=== PATIENT | female | born 1950 | race Caucasian/White ===

== ENCOUNTER 2019-12-30 20:33 | Inpatient (IN) ==
--- OUTSIDE RECORDS SUMMARY | 2019-12-30 20:36 | External Medical Summary | Continuity of Care Document ---
:1950 Author Name Shelly Gaines Address Unavailable Unavailable , Care Team Providers Name Role Phone Tony Gaines Unavailable [email or web address] Active medical history not documented Allergies and Adverse Reactions Allergy history not documented Medications Medications not documented Procedures Procedures not documented Immunizations Immunizations not documented Plan of Treatment Planned Observations Planned Goals not documented Results No Known Results Results not documented
[2019-12-30] MEDS ORDERED: HYDROmorphone INJ 1 MG/ML SYRINGE IV PRN (21:14)
[2019-12-30] MEDS ORDERED: ONDANSETRON INJ 2 MG/ML 2 ML VIAL IV STA (21:14)
[2019-12-30] MEDS ORDERED: SODIUM CHLORIDE 0.9% 1000ML 1,000 ML IV ONE (21:15)
[2019-12-30 21:23] LABS: Basophils # (auto) 0.01 K/uL (0-0.2); Basophils % (auto) 0.1 %; Eosinophils # (auto) 0.64 K/uL (0-0.5); Eosinophils % (auto) 4.8 %; Hematocrit (blood only) 42.2 % (37-47); Hemoglobin 14.8 g/dL (12.0-16.0); Immature Granulocytes # (auto) 0.03 K/uL (0.00-0.02); Immature Granulocytes % (auto) 0.2 %; Lymphocytes # (auto) 1.07 K/uL (1.2-3.4); Mean Corpuscular Hemoglobin 30.3 pg (25-34); Mean Corpuscular Hgb Conc 35.1 g/dL (32-36); Mean Corpuscular Volume 86.5 fL (80-100); Mean Platelet Volume 10.8 fL (7.4-10.4); Monocytes # (auto) 1.23 K/uL (0.11-0.59); Monocytes % (auto) 9.2 %; Neutrophils # (auto) 10.34 K/uL (1.4-6.5); Neutrophils % (auto) 77.7 %; Platelet Count 194 K/uL (130-400); RDW Coefficient of Variation 12.7 % (11.5-14.5); RDW Standard Deviation 40.7 fL (36.4-46.3); Red Blood Count 4.88 M/uL (4.2-5.4); White Blood Count 13.32 K/uL (4.8-10.8)
[2019-12-30 21:30] LABS: Albumin Level 3.8 gm/dl (3.4-5.0); BUN Creatinine Ratio 9.1 (10-20); Calcium 9.6 mg/dl (8.5-10.1); Creatinine Clr Calc Pharmacy 24.9 ml/min; Est GFR (African American) 27.5; Est GFR (Non-African American) 23.7; Potassium 4.1 mmol/L (3.5-5.1)
[2019-12-30 21:33] LABS: Albumin Globulin Ratio 1.2 (0.9-2); Bilirubin,Total 1.1 mg/dl (0.2-1); Globulin 3.2 gm/dl (2.5-4.0)
[2019-12-30] MEDS ORDERED: LEVOFLOXACIN/D5W 750 MG/150 ML BAG IV SCH (22:30)
[2019-12-30] MEDS ORDERED: cefTRIAXone SODIUM 2,000 MG/70 ML BAG IV STA (22:30)
[2019-12-30] MEDS ORDERED: PROMETHAZINE HCL 12.5 MG in SODIUM CHLORIDE 0.9% 50 ML IV STA (23:30)
[2019-12-30] MEDS ORDERED: PROMETHAZINE 12.5 MG/50.5 ML NSS IV ONE (23:44)
[2019-12-30] MEDS ORDERED: SODIUM CHLORIDE 0.9% 500 ML IV SCH (23:46)
--- NOTE | 2019-12-31 01:17 | Emergency Department Note ---
History of Present Illness General Chief complaint: Abdominal Pain Stated complaint: abdominal pain Time Seen by Provider: 12/30/19 20:37 Source: patient, RN notes reviewed and old records reviewed Mode of arrival: ambulatory Limitations: no limitations History of Present Illness Provider complaint: Abdominal pain Onset (ago): week(s) 1 Location: abdomen Radiation: back Severity: mild Pain Consistency: + colicky Maximum Pain Intensity: 1 Current Pain Intensity: 1 Quality: + burning Relieved By: + immobilization Exacerbated By: + movement Associated symptoms: + denies other symptoms Treatments prior to arrival: other (cipro and flagyl) This is a 69-year-old female who presents emergency department complaining of abdominal pain. The patient was started on Cipro and Flagyl for presumed diverticulitis by her primary care physician however the patient was vomiting tonight was unable to keep her medicines down. She describes the pain as burning. Home Medications Home Medications Medication Instructions Recorded Confirmed Type alirocumab [Praluent Pen] 0 mg SUBCUT UD 12/30/19 12/30/19 History aspirin [Aspirin Low Dose] 81 mg PO DAILY 12/30/19 12/30/19 History ciprofloxacin HCl 500 mg PO BID 12/30/19 12/30/19 History clonazepam 0.5 mg PO BID 12/30/19 12/30/19 History docusate sodium 100 mg PO DAILY 12/30/19 12/30/19 History ezetimibe 10 mg PO DAILY 12/30/19 12/30/19 History loratadine [Claritin] 10 mg PO DAILY 12/30/19 12/30/19 History metronidazole 500 mg PO TID 12/30/19 12/30/19 History nortriptyline 25 mg PO DAILY 12/30/19 12/30/19 History vortioxetine [Trintellix] 5 mg PO DAILY 12/30/19 12/30/19 History Allergies Allergy/AdvReac Type Severity Reaction Status Date / Time Penicillins Allergy Mild Hives Unverified 12/30/19 20:56 Tetracyclines Allergy Mild Hives Unverified 12/30/19 20:56 Past Med/Surg History Medical History (Updated 12/31/19 @ 01:36 by Joshua Lux MD) Diverticulitis Social History Communication Ability: Effective Beliefs That Will Affect Care: None Current Living Situation: Family Other Information That Helps Us Care for You: No Feels Safe at Home: Yes Safety Concerns: Feels Safe At This Time Smoking Status: Never smoker Hx Alcohol Use: Yes Hx Substance Use: No Review of Systems A total of 10 systems reviewed and were otherwise negative Physical Exam Vital Signs Vital Signs - 24 hr 12/30/19 20:39 12/30/19 21:30 12/30/19 21:41 Temperature 36.6 C Temperature Source Oral Pulse Rate 87 Pulse Rate [Bilateral Apical] 81 Respiratory Rate 20 20 Blood Pressure 138/92 Blood Pressure [Left Arm] 112/59 L Blood Pressure Mean 107 Blood Pressure Mean [Left Arm] 76 Pulse Oximetry 96 96 94 Oxygen Delivery Method Room Air Room Air Room Air Sepsis Recent Fever Within 48 Hours No Sepsis Action Taken by Nursing No Action Required 12/30/19 22:32 12/30/19 23:19 Temperature Temperature Source Pulse Rate Pulse Rate [Bilateral Apical] 84 87 Respiratory Rate 20 20 Blood Pressure Blood Pressure [Left Arm] 117/60 93/71 L Blood Pressure Mean Blood Pressure Mean [Left Arm] 79 78 Pulse Oximetry 95 95 Oxygen Delivery Method Room Air Sepsis Recent Fever Within 48 Hours Sepsis Action Taken by Nursing VITAL SIGNS - Vital signs and nursing notes were reviewed. GENERAL - 69-year-old female appearing stated age who is in no acute distress. Communicates well with provider and answers questions appropriately. SKIN - Without rashes. HEAD - NC/AT. EYES - PERRL with EOMI bilaterally. Sclera anicteric. Palpebral conjunctiva pink and moist with no injection noted. EARS - No deformities of external structures noted on gross examination bilaterally. No pain elicited with palpation of the tragus bilaterally. External auditory canals without discharge or otorrhea. Tympanic membranes pearly rosales without retraction or bulging. No fluid or purulent material visualized behind the TM. Handle of malleus, umbo, cone of light, pars tensa/flaccid all easily visualized. NOSE - Midline and without cyanosis. No epistaxis or purulent drainage noted. Septum midline without deviation or septal hematoma noted. MOUTH/OROPHARYNX - Without perioral cyanosis. Buccal mucosa pink and moist and without leukoplakia. Tongue midline with equal elevation of palate bilaterally. No tonsillar hypertrophy, erythema, or exudates noted. dentition noted. NECK - Neck with FROM. Supple to palpation. lymphadenopathy noted. No nuchal rigidity. LUNGS - Chest wall symmetric without accessory muscle use, intercostals retractions, or central cyanosis. Normal vesicular breath sounds CTA B/L. No wheezes, rales, or rhonchi appreciated. CARDIAC - RRR with S1/S2. No murmur, rubs, or gallops appreciated. ABDOMEN - Abdominal contour without pulsations or visible masses. BS normoactive all four quadrants. No tenderness, palpable masses, hepatosplenomegaly, or ascites noted. EXTREMITIES - No clubbing or peripheral cyanosis. No pretibial edema present. +3/5 radial, posterior tibial, and dorsalis pedis pulses palpated throughout. +5/5 strength noted in UE/LE bilaterally. NEUROLOGIC - Cranial nerves II through XII grossly intact. Sensory intact to light touch throughout. Patellar reflexes +2/4. PSYCH - A&Ox3 and cooperates fully with examiner. Pt is very pleasant and interacts well with examiner. Course Administered Medications Discontinued Medications Hydromorphone HCl (Dilaudid) 1 mg IV Q15M PRN PRN Reason: Pain Stop: 01/13/20 21:13 Last Admin: 12/30/19 21:22 Dose: 1 mg Documented by: [id number] Sodium Chloride (Nss 1000ml) 1,000 mls @ 999 mls/hr IV .Q1H1M ONE Stop: 12/30/19 22:15 Last Infusion: 12/30/19 22:26 Dose: 0 mls/hr Documented by: [id number] Admin: 12/30/19 21:22 Dose: 999 mls/hr Documented by: [id number] Ceftriaxone Sodium (Rocephin) 2,000 mg in 70 mls @ 140 mls/hr IV NOW STA Stop: 12/30/19 22:59 Last Infusion: 12/30/19 23:11 Dose: 0 mls/hr Documented by: [id number] Admin: 12/30/19 22:37 Dose: 140 mls/hr Documented by: [id number] Levofloxacin/Dextrose (Levaquin/D5w) 750 mg in 150 mls @ 100 mls/hr IV Q24H ANTHONY Stop: 01/04/20 22:29 Last Infusion: 12/31/19 00:52 Dose: 0 mls/hr Documented by: [id number] Admin: 12/30/19 23:11 Dose: 100 mls/hr Documented by: [id number] Promethazine HCl 12.5 mg/ (Sodium Chloride) 50.5 mls @ 202 mls/hr IV NOW STA Stop: 12/30/19 23:44 Last Infusion: 12/31/19 00:12 Dose: 0 mls/hr Documented by: [id number] Admin: 12/30/19 23:49 Dose: 202 mls/hr Documented by: [id number] Sodium Chloride (Nss) 500 mls @ 500 mls/hr IV .Q1H ANTHONY Stop: 12/31/19 00:45 Last Admin: 12/31/19 00:16 Dose: 500 mls/hr Documented by: [id number] Ondansetron HCl (Zofran) 4 mg IV NOW STA Stop: 12/30/19 21:15 Last Admin: 12/30/19 21:22 Dose: 4 mg Documented by: [id number] Promethazine HCl (Phenergan) Confirm Administered Dose 12.5 mg IV .STK-MED ONE Stop: 12/30/19 23:45 Last Admin: 12/31/19 00:11 Dose: Not Given Documented by: [id number] Medical Decision Making Differential Diagnosis Appendicitis, ovarian cyst, ovarian torsion, ectopic , TOA, PID, infections, diverticulitis, UTI, obstruction, mesenteric ischemia, aortic pathology, inflammatory bowel disease, renal colic, PUD, pancreatitis, biliary pathology, hernia, volvulus, constipation, as well as other pathologies. Medical Records Attestation: I reviewed the patient's medical records. Home Medications Current Medication List: was personally reviewed by me Laboratory Data Attestation: I reviewed the patient's lab results. Result diagrams: 12/30/19 20:46 12/30/19 20:46 Lab Results 12/30/19 12/30/19 Range/Units 20:46 20:46 WBC 13.32 H (4.8-10.8) K/uL RBC 4.88 (4.2-5.4) M/uL Hgb 14.8 (12.0-16.0) g/dL Hct 42.2 (37-47) % MCV 86.5 (80-100) fL MCH 30.3 (25-34) pg MCHC 35.1 (32-36) g/dL RDW Std Deviation 40.7 (36.4-46.3) fL RDW Coeff of Mike 12.7 (11.5-14.5) % Plt Count 194 (130-400) K/uL MPV 10.8 H (7.4-10.4) fL Immature Gran % (Auto) 0.2 % Neut % (Auto) 77.7 % Lymph % (Auto) 8.0 % Alfalfa % (Auto) 9.2 % Eos % (Auto) 4.8 % Baso % (Auto) 0.1 % Neut # (Auto) 10.34 H (1.4-6.5) K/uL Lymph # (Auto) 1.07 L (1.2-3.4) K/uL Alfalfa # (Auto) 1.23 H (0.11-0.59) K/uL Eos # (Auto) 0.64 H (0-0.5) K/uL Baso # (Auto) 0.01 (0-0.2) K/uL Immature Gran # (Auto) 0.03 H (0.00-0.02) K/uL Sodium 138 (136-145) mmol/L Potassium 4.1 (3.5-5.1) mmol/L Chloride 105 (98-107) mmol/L Carbon Dioxide 22 (21-32) mmol/L Anion Gap 10.0 (3-11) BUN 19 H (7-18) mg/dl Creatinine 2.09 H (0.6-1.2) mg/dl Est Cr Clr Drug Dosing 24.9 ml/min Est GFR ( Amer) 27.5 Est GFR (Non-Af Amer) 23.7 BUN/Creatinine Ratio 9.1 L (10-20) Glucose 124 H (70-99) mg/dl Calcium 9.6 (8.5-10.1) mg/dl Total Bilirubin 1.1 H (0.2-1) mg/dl AST 27 (15-37) U/L ALT 26 (12-78) U/L Alkaline Phosphatase 68 (45-117) U/L Total Protein 7.0 (6.4-8.2) gm/dl Albumin 3.8 (3.4-5.0) gm/dl Globulin 3.2 (2.5-4.0) gm/dl Albumin/Globulin Ratio 1.2 (0.9-2) Lipase 163 (73-393) U/L Imaging Data Radiologist's Impression: CT abd & pelvis: Without contrast: Moderate sized hernia, Distended gallbladder. No wall thickening. No surrounding fluid. No gallstones. Bilateral perinephric standing without hydronephrosis. No obstructive uropathy. Distal colonic diverticulosis. No acute diverticulitis. Right adrenal adenoma. 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 MDM Narrative Patient was seen and evaluated as above in room B7. Review was performed of nursing notes and vital signs. I did review pertinent previous visits and patient history. After obtaining a thorough history and physical examination the above work up was performed. This is a 69-year-old female presents emergency department complaining of abdominal pain as well as vomiting. An IV was established at the patient's creatinine was found to be elevated to 2.0. She was given a normal saline bolus and started on broad-spectrum antibiotics including Rocephin. I did discuss the case with the hospitalist who agreed to admit the patient. An order was placed for continuous cardiac monitoring. The monitor shows a rate of 78 with Normal Sinus rhythm. The patient was evaluated during the global COVID-19 pandemic, and that diagnosis was suspected/considered upon their initial presentation. Their evaluation, treatment and testing was consistent with current guidelines for patients who present with complaints or symptoms that may be related to COVID- 19. Impression & Plan Abdominal pain, Acute kidney failure Discharge Plan Visit Data *Final* Discharge Date/Time: 12/31/19 00:17 Chief Complaint: Abdominal Pain Stated Complaint: abdominal pain ED Provider: Joshua Lux Discharge Problem: Abdominal pain, Acute kidney failure Patient Disposition: Admitted As Inpatient Discharge Instructions Interventions: ED Discharge Assessment Last Done: 12/31/19 00:17 Discharge Problem: Abdominal pain Qualifiers: Abdominal location: unspecified location Qualified Code(s): R10.9 - Unspecified abdominal pain Acute kidney failure Qualifiers: Acute renal failure type: unspecified Qualified Code(s): N17.9 - Acute kidney failure, unspecified
[2019-12-31 01:23] LABS: Appearance Urine Clear (Clear); Bacteria Urine Automated Negative (Negative); Bilirubin Urine Negative (Negative); Blood Urine Negative (Negative); Color Urine Yellow; Epithelial Cell Urine Auto >30 /lpf (0-5); Glucose Urine UA Negative (Negative); Ketones Urine Trace (Negative); Leukocyte Esterase Urine Negative (Negative); Nitrite Urine Negative (Negative); Protein Urine 2+ (Negative); RBC Urine Automated 0-4 /hpf (0-4); Specific Gravity Urine 1.011 (1.000-1.030); Urobilinogen Urine Negative (Negative)
--- NOTE | 2019-12-31 01:32 | History and Physical Report ---
DATE OF ADMISSION: 12/30/2019 CHIEF COMPLAINT: Abdominal pain. HISTORY OF PRESENT ILLNESS: This is a 69-year-old female with past medical history significant for hyperlipidemia, prediabetes, diaphragmatic hernia, diverticulosis of large intestine without hemorrhage, chronic kidney disease stage III, fibromyalgia, history of basal cell cancer, generalized anxiety disorder, major depression who lives at home with her son, presents with ongoing abdominal pain. She is having abdominal pain for last few days. Initially started in the left lower quadrant and groin region, now is mostly in the lower abdomen and also in the back. She had history of diverticulosis so she thought she is having diverticulitis and has tele medicine and was prescribed Cipro and Flagyl which she started taking since Tuesday, but today she could not take the pills because she had several episodes of nausea/ vomiting and she also has episodes of diarrhea, so she came to the ER. In the ER, CT scan was done which is showing bilateral perinephric stranding, but no diverticulitis on the preliminary report. Her white count was 13k. She is afebrile. Her blood pressure is somewhat on the lower side. Otherwise, hemodynamics are stable. Received Rocephin and fluids in the ER, still has some nausea. Denies any headache, no dizziness, no blurred vision, no earache, no runny nose, no sore throat, no cough, no dysphagia, no shortness of breath, no chest pain, no loss of sense of smell or taste. No blood in stools or black stools. Today she has some discomfort while micturating, but in the ER, she was not able to micturate so far. No rash. ALLERGIES: CEPHALEXIN, RASH; CRESTOR, PENICILLINS, HIVES; PRAVASTATIN, SULFA ANTIBIOTICS, TETRACYCLINE. PAST MEDICAL HISTORY: As mentioned above. PAST SURGICAL HISTORY: , bilateral cataract surgery, total hysterectomy, laparoscopy of the abdomen. HOME MEDICATIONS: The patient is on aspirin 81 mg p.o. daily, Cipro 500 mg p.o. b.i.d., metronidazole 500 mg p.o. t.i.d., nortriptyline 25 mg p.o. at bedtime, Zetia 10 mg p.o. daily, Praluent 75 mg injection under skin every 14 days, Trintellix 5 mg p.o. daily, Colace 100 mg p.o. b.i.d., clonazepam 0.5 mg p.o. b.i.d., loratadine 10 mg p.o. daily p.r.n. FAMILY HISTORY: Significant for brother has diabetes, one brother had bypass at age of 45. Brother has thyroid disorder. Sister has thyroid disorder. One sister has CABG at age of 63. Mother has valve repair, diabetes. Father has GA at age of 39. SOCIAL HISTORY: , lives with her son. No smoking, alcohol rarely. No drug use. REVIEW OF SYMPTOMS: As per HPI. Rest of review of symptoms negative. PHYSICAL EXAMINATION: GENERAL: The patient is of moderate build, not in acute distress. VITAL SIGNS: Temperature 36.6, pulse 87, respiratory rate 20, blood pressure 93/71, oxygen 95% on room air. HEENT: No pallor, no icterus. NECK: No JVD, no neck masses, no carotid bruits. CARDIOVASCULAR: S1, S2 heard, regular rate and rhythm. No murmur, no gallop. RESPIRATORY SYSTEM: Normal AP diameter. No accessory muscle use. No wheezing, no crackles. ABDOMEN: Soft, bowel sounds present. Mild abdominal diffuse discomfort. No guarding, no rigidity. No distention. CENTRAL NERVOUS SYSTEM: Cranial nerves II-XII grossly intact. Nonfocal. EXTREMITIES: No edema, no erythema. LABORATORY DATA: WBC 13.3, hemoglobin 14.8, hematocrit 42.2, platelets 194. Sodium 138, potassium 4.1, chloride 105, bicarbonate 22, BUN 19, creatinine 2.09, serum glucose 124, calcium 9.6, total bilirubin 1.1, AST 27, ALT 26, alkaline phosphatase 68, lipase 163. IMAGING: CT of abdomen and pelvis, preliminary report with moderate size hiatal hernia, distended gallbladder, no wall thickening, no surrounding fluid. No gallstones, bilateral perinephric stranding without hydronephrosis. No obstructive uropathy, distal colonic diverticulosis, no acute diverticulitis, right adrenal adenoma, several small saccular aneurysm with peripheral calcifications involving the splenic artery. ASSESSMENT AND PLAN: This is a 69-year-old female who presents with abdominal pain and found to have possible pyelonephritis. 1. Abdominal pain, possible urinary tract infection and possible pyelonephritis. Bilateral perinephric stranding on CT scan. Received Rocephin and Levaquin in Er. We will continue with IV Rocephin. Follow the cultures. IV fluids. Closely monitor in medical floor. She has several episodes of nausea and vomiting today, will keep her npo, IV antiemetics.Distended gall bladder on ct scan. Will get Gall bladder US. 2. Acute kidney injury on chronic kidney disease stage III: Baseline creatinine around 1.1, current creatinine of 2, mostly from the nausea, vomiting and diarrhea, getting fluids. Avoid nephrotoxic agents. We will follow the labs in a.m. Will follow the final report of the CAT scan. 3. Prediabetes, currently n.p.o. We will follow HbA1c levels. 4. Dyslipidemia: On Praluent subcutaneous q. 14 days. 5. Generalized anxiety disorder and depression: On nortriptyline, Klonopin, and on Trintellix. 6. Deep vein thrombosis prophylaxis: Sequential compression devices for now. DISPOSITION: Close monitor in medical floor. Expect to discharge home and follow with family doctor. Level 1 full code. MTDD
[2019-12-31] MEDS: SODIUM CHLORIDE 0.9% 1000ML 1,000 ML IV SCH ×4 (01:40→22:02)
[2019-12-31 01:46] LABS: Renal Epithelial Cells Urine 0-5 /lpf (0-5)
[2019-12-31] MEDS: MoRPHine SULFATE 2 MG/ML CARP IV PRN ×2 (03:27→12:30)
[2019-12-31] MEDS: ACETAMINOPHEN 325 MG TAB PO PRN (05:00)
[2019-12-31 06:24] LABS: Basophils # (auto) 0.01 K/uL (0-0.2); Basophils % (auto) 0.1 %; Eosinophils # (auto) 0.15 K/uL (0-0.5); Eosinophils % (auto) 1.7 %; Immature Granulocytes # (auto) 0.02 K/uL (0.00-0.02); Immature Granulocytes % (auto) 0.2 %; Lymphocytes # (auto) 1.05 K/uL (1.2-3.4); Lymphocytes % (auto) 11.8 %; Mean Corpuscular Hemoglobin 29.9 pg (25-34); Mean Corpuscular Hgb Conc 33.3 g/dL (32-36); Mean Corpuscular Volume 89.7 fL (80-100); Mean Platelet Volume 10.7 fL (7.4-10.4); Monocytes % (auto) 10.1 %; Neutrophils # (auto) 6.78 K/uL (1.4-6.5); Neutrophils % (auto) 76.1 %; Platelet Count 196 K/uL (130-400); RDW Coefficient of Variation 12.8 % (11.5-14.5); RDW Standard Deviation 41.8 fL (36.4-46.3); Red Blood Count 4.35 M/uL (4.2-5.4); White Blood Count 8.91 K/uL (4.8-10.8)
[2019-12-31] MEDS ORDERED: ERTAPENEM CONSULT ACTIVE PRN (06:28)
[2019-12-31 06:47] LABS: BUN Creatinine Ratio 8.4 (10-20); Calcium 8.1 mg/dl (8.5-10.1); Creatinine Clr Calc Pharmacy 19.7 ml/min; Est GFR (African American) 20.7; Est GFR (Non-African American) 17.9; Magnesium 1.9 mg/dl (1.8-2.4); Potassium 4.6 mmol/L (3.5-5.1)
[2019-12-31 07:35] LABS: Estimated Average Glucose 105 mg/dl; Hemoglobin A1C 5.3 % (4.5-5.6)
--- NOTE | 2019-12-31 08:19 | Ultrasound Report ---
ABDOMINAL ULTRASOUND, RIGHT UPPER QUADRANT HISTORY: Left lower quadrant pain. distended galll bladder on ct scan. COMPARISON: Abdomen and pelvis CT 12/22/2019. FINDINGS: Pancreas: The pancreas demonstrates a normal echotexture. Liver: Unremarkable. Gallbladder: Multiple small gallstones. No gallbladder wall thickening. The gallbladder is mildly dis tended. The technologist reported a positive sonographic Forrester sign. CBD: Upper limits of normal measuring 6 mm. Right kidney: No hydronephrosis. Hypoechoic right adrenal gland lesion measuring 2.7 cm. IMPRESSION: 1. Cholelithiasis. No gallbladder wall thickening. However, the gallbladder is distended and the tech nologist reported a positive sonographic Forrester's sign. Therefore, this is concerning for a developin g acute cholecystitis. Clinical correlation and/or HIDA scan recommended for further evaluation. 2. The common bile duct measures 6 mm. 3. A 2.7 cm right adrenal gland lesion. This is better appreciated on yesterday's abdomen and pelvis CT. ACT 112: Negative or not required by law. Electronically signed by: Elliot Dupree M.D. 12/31/2019 8:18 AM
--- NOTE | 2019-12-31 08:25 | CT Scan Report ---
CT OF THE ABDOMEN AND PELVIS WITHOUT CONTRAST CLINICAL HISTORY: Left lower quadrant abdominal pain. COMPARISON STUDY: No previous studies for comparison. TECHNIQUE: Axial images of the abdomen and pelvis were obtained without IV contrast. Images were revi ewed in the axial, sagittal, and coronal planes. Automated exposure control was utilized for the bryn dy. A dose lowering technique was utilized adhering to the principles of ALARA. FINDINGS: No pneumatosis, free air or portal venous gas is present. There is moderate bilateral perin ephric infiltration. There is no hydronephrosis. No renal, ureteral or bladder calculi are present. A 2.6 cm low-attenuation right adrenal nodule favors an adenoma. Unenhanced images of the liver, left adrenal gland, spleen and pancreas are unremarkable. Is no biliary or pancreatic ductal dilatation. G allbladder is mildly distended. There is no adjacent infiltration. There is colonic diverticulosis wi thout evidence for acute diverticulitis. There is no evidence for a bowel obstruction. No suspicious osseous lesions are present. IMPRESSION: 1. Mild gallbladder distention. A right upper quadrant ultrasound is recommended for further evaluati on. 2. Moderate nonspecific bilateral perinephric infiltration. No urinary calculi or hydronephrosis. 3. 2.6 cm right adrenal nodule suggestive of an adenoma. 4. Colonic diverticulosis without evidence for acute diverticulitis. ACT 112: Negative or not required by law. Electronically signed by: Rony Beard M.D. 12/31/2019 8:23 AM
[2019-12-31] MEDS: TRINTELLIX~ORDER AWAITING ACTION SCH ×2 (08:40→16:40)
[2019-12-31] MEDS: ERTAPENEM SODIUM 500 MG in SODIUM CHLORIDE 0.9% 50 ML IV SCH (08:40)
[2019-12-31] MEDS: ONDANSETRON INJ 2 MG/ML 2 ML VIAL IV PRN ×2 (09:57→17:51)
--- NOTE | 2019-12-31 10:24 | Hospitalist Progress Note ---
Date of Service December 31, 2019 Assessment & Plan (1) Abdominal pain: Cholelithiasis, with possible acute cholecystitis - as per admission H and P "This is a 69-year-old female with past medical history significant for hyperlipidemia, prediabetes, diaphragmatic hernia, diverticulosis of large intestine without hemorrhage, chronic kidney disease stage III, fibromyalgia, history of basal cell cancer, generalized anxiety disorder, major depression who lives at home with her son, presents with ongoing abdominal pain. She is having abdominal pain for last few days. Initially started in the left lower quadrant and groin region, now is mostly in the lower abdomen and also in the back. She had history of diverticulosis so she thought she is having diverticulitis and has tele medicine and was prescribed Cipro and Flagyl which she started taking since Tuesday, but today she could not take the pills because she had several episodes of nausea/ vomiting and she also has episodes of diarrhea, so she came to the ER. In the ER, CT scan was done which is showing bilateral perinephric strand ing, but no diverticulitis on the preliminary report. Her white count was 13k. She is afebrile." -patient was given ceftriaxone and Levaquin in the ED and then admitting physician transitioned antibiotics to Ertapenem instead for now for possible underlying infection of unclear etiology -ultrasound shows "Cholelithiasis. No gallbladder wall thickening. However, the gallbladder is distended and the technologist reported a positive sonographic Forrester's sign. Therefore, this is concerning for a developing acute cholecystitis." -discussed with gastroenterology team, and they recommended MRCP instead of HIDA scan for now -patient to be NPO and await general surgery consult (2) Lesion of adrenal gland: A 2.7 cm right adrenal gland lesion on ultrasound which may be incidental finding (3) Acute kidney failure: Acute kidney injury on chronic kidney disease stage III: -Baseline creatinine around 1.1, current creatinine of 2.64 -most likely not in acute renal failure unless labs do not improve with IV fluids -mostly likely acute kidney injury is pre-renal from dehydration -follow creatinine with the IV fluids Prediabetes by history -HbA1c levels is 5.3 Dyslipidemia -On Praluent subcutaneous q. 14 days. Generalized anxiety disorder and depression -On nortriptyline, Klonopin, and on Trintellix Deep vein thrombosis prophylaxis: Sequential compression devices for now Admission and Anticipated Discharge Date Admission Date: December 30, 2019 Subjective patient reports her pain has been mostly left sided of abdomen but that on palpation by hospitalist and GI physician printer assistant that there is more tenderness when palpating right side of abdomen no vomiting today. denies pacemaker or metal parts in the body. no chest pain. breathing on room air. no shortness of breath. no dizziness. no lightheadedness. Review of Systems Review of Systems: All systems reviewed & are unremarkable except as noted in Subjective Physical Exam Constitutional: WD/WN, vitals as above Eyes: PERRL, conjunctivae normal, anicteric sclerae EOM intact bilaterally ENMT: external ear and nose normal, oropharynx normal Neck: trachea midline, no thyromegaly normal visual inspection Respiratory: normal respiratory effort, lungs clear to auscultation Cardiovascular: Rate/Rhythm: regular rate Gastrointestinal (Abdomen): Percussion/Palpation: abdomen soft patient reports her pain has been mostly left sided of abdomen but that on palpation by hospitalist and GI physician printer assistant that there is more tenderness when palpating right side of abdomen Musculoskeletal: Head/Neck/Chest: normocephalic and head atraumatic Neurologic: PERRL, EOMI, accommodation nl, no face palsy, no dysarthria CN's II-XI intact bilaterally Psychiatric: A+Ox3, euthymic affect Results & Data Results & Data ([facility]) Vital Signs (Past 12 Hours) Vital Signs Temp Pulse Pulse Resp BP Pulse Ox 12/31/19 07:12 36.9 C 69 18 108/71 97 12/31/19 00:57 35.6 C L 78 18 129/84 94 12/31/19 00:12 86 20 131/86 94 12/30/19 23:19 87 20 93/71 L 95 12/30/19 22:32 84 20 117/60 95 (1) Acute kidney failure Acute renal failure type: unspecified Qualified Code(s): N17.9 - Acute kidney failure, unspecified (2) Abdominal pain Abdominal location: unspecified location Qualified Code(s): R10.9 - Unspecified abdominal pain
--- NOTE | 2019-12-31 10:25 | Gastrointestinal Consultation ---
Date of Consultation December 31, 2019 Supervising Physician Co-Signing Physician Notes I have personally seen and examined the patient with GARLAND Reyez. Her note reflects my exam and findings. I agree with her impression and plans. MRCP today looking for biliary source. Qasim Alves M.D. History of Present Illness Reason for Consultation: Distended Gallbladder Requesting Physician: Dr. Sergio Hicks Attending Physician: Dr. Qasim Alves History of Present Illness Pt is a 69 y/o female who presented yesterday w c/o increasing abd pain symptoms. Initially LLQ abd pain a few days ago, suspected to have diverticulitis, and given a course of Cipro/Flagyl by PCP. She however noted abd pain started to radiate to R side of abd. Denies associated fever, chills, CP, SOB. Does have n/v, and reports having hard time initiating urine stream though denies hematuria or dysuria. Admission CT abd/pelvis w/o contrast was suspicious for pyelonephritis. There was also mildly distended gallbladder. Gallbladder u/s obtained showed gallstones, CBD 6mm , and there was positive Forrester's sign. Labs notable for increased WBC, LFTs w mild Tbili elevation of 1.1, Cr up from baseline of 1 to 2.2. Lipase normal. UA positive for protein, ketones. ASSESSMENT & PLANS: Pt is a 69 y/o female w L -> R sided abd pain. Initially received outpt Cipro/Flagyl for suspected diverticulitis however pain worsen. Admission CT suspicious for pyelonephritis and gallbladder noted to be mildly distended w stones and she does have positive Forrester's sign. CBD 6mm. LFTs w only mild T bili elevation, lipase normal. - NPO for now - JANET managment per primary team - Continue IV antibx - Obtain MRCP to r/o biliary stone though seems less likely - Surgery consulted already Allergies Allergy/AdvReac Type Severity Reaction Status Date / Time Penicillins Allergy Mild Hives Unverified 12/30/19 20:56 Tetracyclines Allergy Mild Hives Unverified 12/30/19 20:56 Home Medications Home Medications Medication Instructions Recorded Confirmed Type alirocumab [Praluent Pen] 0 mg SUBCUT UD 12/30/19 12/30/19 History aspirin [Aspirin Low Dose] 81 mg PO DAILY 12/30/19 12/30/19 History ciprofloxacin HCl 500 mg PO BID 12/30/19 12/30/19 History clonazepam 0.5 mg PO BID 12/30/19 12/30/19 History docusate sodium 100 mg PO DAILY 12/30/19 12/30/19 History ezetimibe 10 mg PO DAILY 12/30/19 12/30/19 History loratadine [Claritin] 10 mg PO DAILY 12/30/19 12/30/19 History metronidazole 500 mg PO TID 12/30/19 12/30/19 History nortriptyline 25 mg PO DAILY 12/30/19 12/30/19 History vortioxetine [Trintellix] 5 mg PO DAILY 12/30/19 12/30/19 History Patient History Medical History Diverticulitis Social History Communication Ability: Effective Beliefs That Will Affect Care: None Current Living Situation: Family Other Information That Helps Us Care for You: No Feels Safe at Home: Yes Safety Concerns: Feels Safe At This Time Smoking Status: Never smoker Hx Alcohol Use: Yes Hx Substance Use: No Review of Systems Review of Systems: All systems reviewed & are unremarkable except as noted in HPI & below Physical Exam Constitutional: WD/WN, vitals as above well groomed and cooperative; + uncomfortable Eyes: PERRL, conjunctivae normal, anicteric sclerae ENMT: external ear and nose normal, oropharynx normal Respiratory: normal respiratory effort, lungs clear to auscultation Cardiovascular: RRR, no murmur, no edema Gastrointestinal (Abdomen): Inspection/Auscultation: + hypoactive bowel sounds Percussion/Palpation: + abdomen tender (RUQ, epigastric ) and abdomen soft Skin: no rashes, warm and dry no jaundice Psychiatric: A+Ox3, euthymic affect Lymphatic: no lymphedema Results & Data ([facility]) Vital Signs (Past 12 Hours) Vital Signs Temp Pulse Pulse Resp BP Pulse Ox 12/31/19 07:12 36.9 C 69 18 108/71 97 12/31/19 00:57 35.6 C L 78 18 129/84 94 12/31/19 00:12 86 20 131/86 94 12/30/19 23:19 87 20 93/71 L 95 12/30/19 22:32 84 20 117/60 95
[2019-12-31] MEDS ORDERED: MAGNESIUM SULFATE / D5W 1 GM/100 ML BAG IV ONE (10:45)
[2019-12-31] MEDS: LORATADINE 10 MG TAB PO SCH (11:25)
[2019-12-31] MEDS: ASPIRIN 81 MG ECTAB PO SCH (11:25)
[2019-12-31] MEDS: clonazePAM 0.5 MG TAB PO SCH ×2 (11:26→20:25)
[2019-12-31] MEDS: EZETIMIBE 10 MG TABLET PO SCH (11:26)
--- NOTE | 2019-12-31 14:23 | Magnetic Resonance Report ---
MRCP CLINICAL HISTORY: Generalized abdominal pain. Vomiting. COMPARISON STUDY: Abdominal CT dated 12/30/2019. Abdominal ultrasound dated 12/31/2019. TECHNIQUE: Abdominal MRCP is performed utilizing various T2-weighted sequences in the axial and coron al planes. IV contrast was not administered for this examination. 3-D reformats are created and asses sed. FINDINGS: The gallbladder is mildly distended and there are large intraluminal gallstones. There is no gallblad mehrdad wall thickening or surrounding inflammation. Trace nonspecific pericholecystic and perihepatic fl uid is noted. There is no intra or extrahepatic biliary duct dilatation. The common bile duct measure s up to 7 mm. No intraluminal filling defects are identified to suggest choledocholithiasis. The panc reatic duct is normal in caliber. The liver is enlarged, and hepatic steatosis was shown by both CT and ultrasound. The spleen is blaze l in size. A 10 mm T2 hyperintense lesion in the inferior spleen is statistically of doubtful signifi cance. A 2.7 cm right adrenal nodule was shown to represent a fat-containing adenoma by CT. There is nonspecific bilateral perinephric infiltration, as well as fluid within the paracolic gutters bilater ally, left greater than right. The abdominal aorta is normal in caliber. The pancreatic parenchyma is normal as imaged. There is no bowel obstruction. Diverticulosis is noted in the imaged colon. No upp er abdominal lymphadenopathy is identified. There is a large hiatal hernia. Trace pleural effusions are noted. No destructive bony lesion is sugg ested. IMPRESSION: 1. Cholelithiasis within a mildly distended gallbladder. There is no clear MRI evidence of acute chol ecystitis. If there is clinical concern for acute cholecystitis a nuclear hepatobiliary scan should b e considered. 2. There is no intra or extrahepatic biliary ductal dilatation. No choledocholithiasis is seen. 3. There is nonspecific perinephric infiltration and fluid within the paracolic gutters, left greater than right. Correlate clinically and urinalysis for evidence of ascending urinary tract infection/py elonephritis. 4. The liver is enlarged and steatotic. 5. Large hiatal hernia. 6. Trace pleural effusions and upper abdominal ascites. Dictated: 12/31/2019 1:44 PM Transcribed: 12/31/2019 2:01 PM Rosalinda [id number] [id number] Electronically signed by: Carlos Kessler M.D. 12/31/2019 2:22 PM
--- NOTE | 2019-12-31 14:58 | Surgery Consultation ---
Date of Consultation December 31, 2019 Assessment & Plan (1) Abdominal pain: 69-year-old female with bilateral flank pain and perinephric stranding as well as cholelithiasis with no obvious evidence for cholecystitis. Renal function was worsening this morning. MRCP shows no bile duct obstruction, some gallstones but no cholecystitis. At this time, it appears that her symptoms are more renal in origin than from her gallbladder. We will order a HIDA scan to further assess. No surgical intervention at this time HIDA scan If HIDA scan will not be performed until tomorrow, then she can have clear liquids, n.p.o. after midnight. Otherwise keep n.p.o. (2) Cholelithiasis: (3) Acute kidney failure: History of Present Illness Reason for Consultation: Cholelithiasis Attending Physician: Sergio Hicks MD History of Present Illness 69-year-old female admitted overnight with bilateral flank pain. She has a history of diverticulitis in the past, and a few days ago she started complaining of left lower quadrant and left flank pain that felt similar to her diverticulitis. She had a telehealth visit with her primary care provider and they prescribed antibiotics. The symptoms worsen. She also noted that her pain migrated to be bilateral flank pain down into her groins. This felt similar to prior kidney infections in the past. She did have some nausea with food. She denies any history of postprandial abdominal pain or intolerance of fatty meals. In the emergency department she had a CT scan performed which showed a distended gallbladder with gallstones but no evidence of cholecystitis. She also had some bilateral perinephric stranding concerning for pyelonephritis. She had an ultrasound performed which showed gallstones with gallbladder distention, but no gallbladder wall thickening or pericholecystic fluid. She did have a reported positive Forrester sign at the time. She was admitted overnight and GI was consulted in the morning. GI ordered an MRCP and surgery was consulted. She had a total bilirubin of 1.1 but the rest of her LFTs were normal. Her white blood cell count was elevated yesterday but is normal today. Prior hysterectomy and , no other abdominal surgeries. Her main complaint is flank pain radiating into her groins. Allergies Allergy/AdvReac Type Severity Reaction Status Date / Time Penicillins Allergy Mild Hives Unverified 12/30/19 20:56 Tetracyclines Allergy Mild Hives Unverified 12/30/19 20:56 Home Medications Home Medications Medication Instructions Recorded Confirmed Type alirocumab [Praluent Pen] 0 mg SUBCUT UD 12/30/19 12/30/19 History aspirin [Aspirin Low Dose] 81 mg PO DAILY 12/30/19 12/30/19 History ciprofloxacin HCl 500 mg PO BID 12/30/19 12/30/19 History clonazepam 0.5 mg PO BID 12/30/19 12/30/19 History docusate sodium 100 mg PO DAILY 12/30/19 12/30/19 History ezetimibe 10 mg PO DAILY 12/30/19 12/30/19 History loratadine [Claritin] 10 mg PO DAILY 12/30/19 12/30/19 History metronidazole 500 mg PO TID 12/30/19 12/30/19 History nortriptyline 25 mg PO DAILY 12/30/19 12/30/19 History vortioxetine [Trintellix] 5 mg PO DAILY 12/30/19 12/30/19 History Patient History Medical History Diverticulitis Social History Communication Ability: Effective Beliefs That Will Affect Care: None Current Living Situation: Family Other Information That Helps Us Care for You: No Feels Safe at Home: Yes Safety Concerns: Feels Safe At This Time Smoking Status: Never smoker Hx Alcohol Use: Yes Hx Substance Use: No Review of Systems Review of Systems: All systems reviewed & are unremarkable except as noted in HPI & below Physical Exam Constitutional: WD/WN, vitals as above Eyes: PERRL, conjunctivae normal, anicteric sclerae ENMT: external ear and nose normal, oropharynx normal Neck: trachea midline, no thyromegaly Respiratory: normal respiratory effort, lungs clear to auscultation Cardiovascular: RRR, no murmur, no edema Gastrointestinal (Abdomen): Percussion/Palpation: + abdomen tender (Bilateral flank tenderness, and diffuse abdominal tenderness to light palpation. No guarding or rebound. Negative Forrester sign) and abdomen soft; no guarding and abdomen not rigid Musculoskeletal: no cyanosis or clubbing, extremities motor strength 5/5 Skin: no rashes, warm and dry Neurologic: PERRL, EOMI, accommodation nl, no face palsy, no dysarthria Psychiatric: A+Ox3, euthymic affect Lymphatic: no cervical or axillary lymphadenopathy Results & Data Vital Signs (Past 12 Hours) Vital Signs Temp Pulse Resp BP Pulse Ox 12/31/19 07:12 36.9 C 69 18 108/71 97 Laboratory Results Laboratory Results - last 24 hr 12/30/19 12/30/19 12/31/19 20:46 20:46 01:10 WBC 13.32 H RBC 4.88 Hgb 14.8 Hct 42.2 MCV 86.5 MCH 30.3 MCHC 35.1 RDW Std Deviation 40.7 RDW Coeff of Mike 12.7 Plt Count 194 MPV 10.8 H Immature Gran % (Auto) 0.2 Neut % (Auto) 77.7 Lymph % (Auto) 8.0 Mcn[place] % (Auto) 9.2 Eos % (Auto) 4.8 Baso % (Auto) 0.1 Neut # (Auto) 10.34 H Lymph # (Auto) 1.07 L [place] # (Auto) 1.23 H Eos # (Auto) 0.64 H Baso # (Auto) 0.01 Immature Gran # (Auto) 0.03 H Sodium 138 Potassium 4.1 Chloride 105 Carbon Dioxide 22 Anion Gap 10.0 BUN 19 H Creatinine 2.09 H Est Cr Clr Drug Dosing 24.9 Est GFR ( Amer) 27.5 Est GFR (Non-Af Amer) 23.7 BUN/Creatinine Ratio 9.1 L Glucose 124 H Estimat Average Glucose Hemoglobin A1c Calcium 9.6 Magnesium Total Bilirubin 1.1 H AST 27 ALT 26 Alkaline Phosphatase 68 Total Protein 7.0 Albumin 3.8 Globulin 3.2 Albumin/Globulin Ratio 1.2 Lipase 163 Urine Color Yellow Urine Appearance Clear Urine pH 6.0 Ur Specific [place] 1.011 Urine Protein 2+ H Urine Glucose (UA) Negative Urine Ketones Trace H Urine Blood Negative Urine Nitrite Negative Urine Bilirubin Negative Urine Urobilinogen Negative Ur Leukocyte Esterase Negative Urine WBC (Auto) 1-5 Urine RBC (Auto) 0-4 U Hyaline Cast (Auto) 5-10 H U Epithel Cells (Auto) >30 H Urine Bacteria (Auto) Negative Ur Renal Epithelial Cell 0-5 12/31/19 12/31/19 12/31/19 05:31 05:31 05:31 WBC 8.91 RBC 4.35 Hgb 13.0 Hct 39.0 MCV 89.7 MCH 29.9 MCHC 33.3 RDW Std Deviation 41.8 RDW Coeff of Mike 12.8 Plt Count 196 MPV 10.7 H Immature Gran % (Auto) 0.2 Neut % (Auto) 76.1 Lymph % (Auto) 11.8 [place] % (Auto) 10.1 Eos % (Auto) 1.7 Baso % (Auto) 0.1 Neut # (Auto) 6.78 H Lymph # (Auto) 1.05 L [place] # (Auto) 0.90 H Eos # (Auto) 0.15 Baso # (Auto) 0.01 Immature Gran # (Auto) 0.02 Sodium 140 Potassium 4.6 Chloride 110 H Carbon Dioxide 26 Anion Gap 4.0 BUN 22 H Creatinine 2.64 H D Est Cr Clr Drug Dosing 19.7 Est GFR ( Amer) 20.7 Est GFR (Non-Af Amer) 17.9 BUN/Creatinine Ratio 8.4 L Glucose 91 Estimat Average Glucose 105 Hemoglobin A1c 5.3 Calcium 8.1 L D Magnesium 1.9 Total Bilirubin AST ALT Alkaline Phosphatase Total Protein Albumin Globulin Albumin/Globulin Ratio Lipase Urine Color Urine Appearance Urine pH Ur Specific [place] Urine Protein Urine Glucose (UA) Urine Ketones Urine Blood Urine Nitrite Urine Bilirubin Urine Urobilinogen Ur Leukocyte Esterase Urine WBC (Auto) Urine RBC (Auto) U Hyaline Cast (Auto) U Epithel Cells (Auto) Urine Bacteria (Auto) Ur Renal Epithelial Cell 12/31/19 14:37 WBC RBC Hgb Hct MCV MCH MCHC RDW Std Deviation RDW Coeff of Mike Plt Count MPV Immature Gran % (Auto) Neut % (Auto) Lymph % (Auto) [place] % (Auto) Eos % (Auto) Baso % (Auto) Neut # (Auto) Lymph # (Auto) [place] # (Auto) Eos # (Auto) Baso # (Auto) Immature Gran # (Auto) Sodium Pending Potassium Pending Chloride Pending Carbon Dioxide Pending Anion Gap Pending BUN Pending Creatinine Pending Est Cr Clr Drug Dosing Pending Est GFR ( Amer) Pending Est GFR (Non-Af Amer) Pending BUN/Creatinine Ratio Pending Glucose Pending Estimat Average Glucose Hemoglobin A1c Calcium Pending Magnesium Pending Total Bilirubin Pending AST Pending ALT Pending Alkaline Phosphatase Pending Total Protein Pending Albumin Pending Globulin Pending Albumin/Globulin Ratio Pending Lipase Urine Color Urine Appearance Urine pH Ur Specific [place] Urine Protein Urine Glucose (UA) Urine Ketones Urine Blood Urine Nitrite Urine Bilirubin Urine Urobilinogen Ur Leukocyte Esterase Urine WBC (Auto) Urine RBC (Auto) U Hyaline Cast (Auto) U Epithel Cells (Auto) Urine Bacteria (Auto) Ur Renal Epithelial Cell Diagnostic Findings MRCP CLINICAL HISTORY: Generalized abdominal pain. Vomiting. COMPARISON STUDY: Abdominal CT dated 12/30/2019. Abdominal ultrasound dated 12/31/2019. TECHNIQUE: Abdominal MRCP is performed utilizing various T2-weighted sequences in the axial and coronal planes. IV contrast was not administered for this exa mination. 3-D reformats are created and assessed. FINDINGS: The gallbladder is mildly distended and there are large intraluminal gallstones. There is no gallbladder wall thickening or surrounding inflammation. Trace nonspecific pericholecystic and perihepatic fluid is noted. There is no intra or extrahepatic biliary duct dilatation. The common bile duct measures up to 7 mm. No intraluminal filling defects are identified to suggest choledocholithiasis. The pancreatic duct is normal in caliber. The liver is enlarged, and hepatic steatosis was shown by both CT and ultrasound. The spleen is normal in size. A 10 mm T2 hyperintense lesion in the inferior spleen is statistically of doubtful significance. A 2.7 cm right adrenal nodule was shown to represent a fat-containing adenoma by CT. There is nonspecific bilateral perinephric infiltration, as well as fluid within the paracolic gutters bilaterally, left greater than right. The abdominal aorta is normal in caliber. The pancreatic parenchyma is normal as imaged. There is no bowel obstruction. Diverticulosis is noted in the imaged colon. No upper abdominal lymphadenopathy is identified. There is a large hiatal hernia. Trace pleural effusions are noted. No destructive bony lesion is suggested. IMPRESSION: 1. Cholelithiasis within a mildly distended gallbladder. There is no clear MRI evidence of acute cholecystitis. If there is clinical concern for acute cholecystitis a nuclear hepatobiliary scan should be considered. 2. There is no intra or extrahepatic biliary ductal dilatation. No choledocholithiasis is seen. 3. There is nonspecific perinephric infiltration and fluid within the paracolic gutters, left greater than right. Correlate clinically and urinalysis for evidence of ascending urinary tract infection/pyelonephritis. 4. The liver is enlarged and steatotic. 5. Large hiatal hernia. 6. Trace pleural effusions and upper abdominal ascites. PG Care Time/CCT Total # of Minutes Spent Total Time Spent with Patient: Total time spent is greater than 50% in coordination of care (as documented) at patient's floor/unit and/or counseling patient: Coding Level of Care Code 42172 Inpt Consult Level 3 Diagnoses Abdominal pain R10.9 Abdominal location: unspecified location Cholelithiasis K80.20 Acute kidney failure N17.9 Acute renal failure type: unspecified (1) Abdominal pain Abdominal location: unspecified location Qualified Code(s): R10.9 - Unspecified abdominal pain (2) Acute kidney failure Acute renal failure type: unspecified Qualified Code(s): N17.9 - Acute kidney failure, unspecified
[2019-12-31 15:14] LABS: Albumin Level 2.9 gm/dl (3.4-5.0); Calcium 8.6 mg/dl (8.5-10.1); Creatinine Clr Calc Pharmacy 17.7 ml/min; Est GFR (African American) 18.2; Est GFR (Non-African American) 15.7; Magnesium 2.5 mg/dl (1.8-2.4); Potassium 4.1 mmol/L (3.5-5.1)
[2019-12-31 15:27] LABS: Bilirubin,Total 0.5 mg/dl (0.2-1); Total Protein 5.9 gm/dl (6.4-8.2)
[2019-12-31] MEDS ORDERED: D5W AND 1/2NSS 1,000 ML IV SCH (15:45)
[2019-12-31] MEDS: NORTRIPTYLINE HCL 25 MG CAP PO SCH (20:25)
[2019-12-31] MEDS ORDERED: cefTRIAXone SODIUM 1,000 MG in DEXTROSE 5% 50 ML IV SCH (21:00)
[2020-01-01] MEDS: ERTAPENEM SODIUM 500 MG in SODIUM CHLORIDE 0.9% 50 ML IV SCH (05:56)
[2020-01-01] MEDS: SODIUM CHLORIDE 0.9% 1000ML 1,000 ML IV SCH ×3 (05:56→20:34)
[2020-01-01 07:40] LABS: Basophils # (auto) 0.01 K/uL (0-0.2); Basophils % (auto) 0.1 %; Eosinophils # (auto) 0.56 K/uL (0-0.5); Eosinophils % (auto) 6.8 %; Hematocrit (blood only) 37.5 % (37-47); Hemoglobin 12.1 g/dL (12.0-16.0); Immature Granulocytes # (auto) 0.01 K/uL (0.00-0.02); Immature Granulocytes % (auto) 0.1 %; Lymphocytes # (auto) 1.48 K/uL (1.2-3.4); Lymphocytes % (auto) 17.9 %; Mean Corpuscular Hemoglobin 29.2 pg (25-34); Mean Corpuscular Hgb Conc 32.3 g/dL (32-36); Mean Corpuscular Volume 90.4 fL (80-100); Mean Platelet Volume 10.2 fL (7.4-10.4); Monocytes # (auto) 0.86 K/uL (0.11-0.59); Monocytes % (auto) 10.4 %; Neutrophils # (auto) 5.36 K/uL (1.4-6.5); Neutrophils % (auto) 64.7 %; Platelet Count 196 K/uL (130-400); RDW Coefficient of Variation 13.2 % (11.5-14.5); RDW Standard Deviation 43.5 fL (36.4-46.3); Red Blood Count 4.15 M/uL (4.2-5.4); White Blood Count 8.28 K/uL (4.8-10.8)
[2020-01-01 08:07] LABS: Albumin Level 2.7 gm/dl (3.4-5.0); BUN Creatinine Ratio 8.2 (10-20); Calcium 8.2 mg/dl (8.5-10.1); Creatinine Clr Calc Pharmacy 20.1 ml/min; Est GFR (African American) 21.3; Est GFR (Non-African American) 18.4; Potassium 4.1 mmol/L (3.5-5.1)
[2020-01-01 08:09] LABS: Bilirubin,Total 0.4 mg/dl (0.2-1); Globulin 2.8 gm/dl (2.5-4.0); Total Protein 5.5 gm/dl (6.4-8.2)
--- NOTE | 2020-01-01 08:39 | Surgery Progress Note ---
Date of Service January 01, 2020 Assessment & Plan (1) Abdominal pain: Patient here with abdominal pain, MRCP and RUQ US showing stones, but no evidence of acute cholecystitis Patient reports her abdominal pain is about the same LFT's today within normal limits and WBC 8.6 Will obtain HIDA scan today for further evaluation, will follow up on results Supervising Physician Co-Signing Physician Notes Patient seen and examined, labs and imaging reviewed, agree with above. MRCP yesterday was negative for choledocholithiasis or cholecystitis. HIDA scan performed today showed no cholecystitis. She is still having some abdominal discomfort and nausea. Would recommend that she trial a regular diet. If her symptoms persist, then we will discuss possible cholecystectomy. She knows that this may not relieve all of her symptoms. She will be n.p.o. after midnight in anticipation of possible surgery. NUCLEAR HEPATOBILIARY SCAN CLINICAL HISTORY: Right upper quadrant abdominal pain. COMPARISON STUDY: MRCP and abdominal ultrasound dated 12/31/2019. TECHNIQUE: Dynamic images of the liver and anterior abdomen were obtained every 5 minutes for a total of 60 minutes following the IV administration of 5.5mCi of technetium 99m Choletec. FINDINGS: The hepatobiliary scan shows prompt and homogeneous hepatic uptake. There is visualized activity within the intra and extrahepatic biliary tree at 10 minutes, and within the gallbladder at 40 minutes. There is normal biliary to bowel transit, with small bowel visualized by 15 minutes. IMPRESSION: Normal nuclear hepatobiliary scan. There is no scintigraphic ev idence of cholecystitis. Subjective Patient said she had a good night of sleep. Starting to pass some gas. Has mild nausea. Reports her abdominal pain is about the same. Physical Exam Physical Exam: awake/alert Gastrointestinal (Abdomen): Percussion/Palpation: + abdomen tender (mild ttp along right sided abdomen) and abdomen soft Results & Data Vital Signs (Past 12 Hours) Vital Signs Temp Pulse Resp BP BP Pulse Ox 01/01/20 06:52 37.2 C 90 16 124/77 93 12/31/19 23:30 37.1 C 93 H 16 124/70 96 PG Care Time/CCT Total # of Minutes Spent Total Time Spent with Patient: Total time spent is greater than 50% in coordination of care (as documented) at patient's floor/unit and/or counseling patient: Coding Level of Care Code 64745 Subseq Hosp Care Lvl 1 Diagnoses Abdominal pain R10.9 Abdominal location: unspecified location (1) Abdominal pain Abdominal location: unspecified location Qualified Code(s): R10.9 - Unspecified abdominal pain
[2020-01-01] MEDS ORDERED: SINCALIDE 1.6 MCG in 0.9 % SODIUM CHLORIDE 100 ML IV SCH (08:45)
--- NOTE | 2020-01-01 09:30 | Nuclear Medicine Report ---
NUCLEAR HEPATOBILIARY SCAN CLINICAL HISTORY: Right upper quadrant abdominal pain. COMPARISON STUDY: MRCP and abdominal ultrasound dated 12/31/2019. TECHNIQUE: Dynamic images of the liver and anterior abdomen were obtained every 5 minutes for a total of 60 minutes following the IV administration of 5.5mCi of technetium 99m Choletec. FINDINGS: The hepatobiliary scan shows prompt and homogeneous hepatic uptake. There is visualized act ivity within the intra and extrahepatic biliary tree at 10 minutes, and within the gallbladder at 40 minutes. There is normal biliary to bowel transit, with small bowel visualized by 15 minutes. IMPRESSION: Normal nuclear hepatobiliary scan. There is no scintigraphic evidence of cholecystitis. ACT 112: Negative or not required by law. Electronically signed by: Carlos Kessler M.D. 01/01/2020 9:29 AM
[2020-01-01] MEDS: LORATADINE 10 MG TAB PO SCH (10:42)
[2020-01-01] MEDS: VORTIOXETINE HYDROBROMIDE PO SCH (10:42)
[2020-01-01] MEDS: clonazePAM 0.5 MG TAB PO SCH ×2 (10:42→21:09)
[2020-01-01] MEDS: ASPIRIN 81 MG ECTAB PO SCH (10:42)
--- NOTE | 2020-01-01 10:57 | Nephrology Consultation ---
Date of Consultation January 01, 2020 Assessment & Plan (1) Acute kidney failure: Patient with acute kidney injury likely due to ischemic ATN in setting of NSAID use and intravascular volume depletion from vomiting and diarrhea. Baseline creatinine of 1.1. Patient admitted with a creatinine of 2 which peaked to 2.9 but improving today to 2.5. -Continue IV fluids at the current rate. -Monitor input output. -Avoid contrast. I explained to patient adverse effects of Advil and other NSAIDs. She promises to avoid taking given as an outpatient. (2) Cholelithiasis: Patient planned for HIDA scan today. GI and surgery following. She is continuing antibiotics empirically. Renally dose antibiotics for current GFR. (3) Lesion of adrenal gland: This appears to be a benign lesion. It will need follow-up as an outpatient. History of Present Illness Reason for Consultation: Acute kidney injury Requesting Physician: Sergio Hicks MD Attending Physician: Sergio Hicks MD History of Present Illness This is 69-year-old female with history of hyperlipidemia, anxiety, depression, fibromyalgia and diverticulosis was admitted on 12/31/2019 with 1 week history of abdominal pain. She had developed vomiting and diarrhea 2 days prior to admission. She has been taking Aleve 2 tablets daily for the past 1 week. She normally takes Aleve for fibromyalgia pains. She was prescribed metronidazole and ciprofloxacin as an outpatient few days prior to admission. She also reported urinary discomfort but no dysuria. In the emergency room she was found to have mild leukocytosis but urinalysis was not suggestive of infection. CT abdomen showed cholelithiasis. She is planned for HIDA scan. Admission creatinine was 2 which increased to 2.9 yesterday but slightly better today at 2.5. Baseline creatinine is 1.1. She reported history of frequent UTIs which improved after getting a total abdominal hysterectomy a few years ago. She lives with a son in [place]. She is a . Allergies Allergy/AdvReac Type Severity Reaction Status Date / Time Penicillins Allergy Mild Hives Unverified 12/30/19 20:56 Tetracyclines Allergy Mild Hives Unverified 12/30/19 20:56 Home Medications Home Medications Medication Instructions Recorded Confirmed Type alirocumab [Praluent Pen] 0 mg SUBCUT UD 12/30/19 12/30/19 History aspirin [Aspirin Low Dose] 81 mg PO DAILY 12/30/19 12/30/19 History ciprofloxacin HCl 500 mg PO BID 12/30/19 12/30/19 History clonazepam 0.5 mg PO BID 12/30/19 12/30/19 History docusate sodium 100 mg PO DAILY 12/30/19 12/30/19 History ezetimibe 10 mg PO DAILY 12/30/19 12/30/19 History loratadine [Claritin] 10 mg PO DAILY 12/30/19 12/30/19 History metronidazole 500 mg PO TID 12/30/19 12/30/19 History nortriptyline 25 mg PO DAILY 12/30/19 12/30/19 History vortioxetine [Trintellix] 5 mg PO DAILY 12/30/19 12/30/19 History Patient History Medical History (Updated 12/31/19 @ 15:00 by Alber Boyer DO, FACS) Cholelithiasis Diverticulitis Social History Communication Ability: Effective Beliefs That Will Affect Care: None Current Living Situation: Family Other Information That Helps Us Care for You: No Feels Safe at Home: Yes Safety Concerns: Feels Safe At This Time Smoking Status: Never smoker Hx Alcohol Use: Yes Hx Substance Use: No Review of Systems Review of Systems: All systems reviewed & are unremarkable except as noted in HPI & below Physical Exam Physical Exam: General exam: Appears comfortable, no acute distress HEENT: Pupils are equal and reactive to light Neck: No JVD, neck is supple trachea is midline Respiratory system: Clear breath sounds bilaterally. Gastrointestinal: Abdomen is soft, non distended, mildly and diffusely tender, bowel sounds are present CVS: Regular rate and rhythm. No murmurs, rubs or gallops Musculoskeletal: No joint or muscle tenderness Extremities: Non tender, no edema, peripheral pulses are present Neuro: Oriented, no tremors, no focal neurological deficits Skin: No rashes Results & Data Vital Signs (Past 12 Hours) Vital Signs Temp Pulse Resp BP BP Pulse Ox 01/01/20 06:52 37.2 C 90 16 124/77 93 12/31/19 23:30 37.1 C 93 H 16 124/70 96 Laboratory Results 01/01/20 07:28 12/31/19 01/01/20 01/01/20 14:37 07:28 07:28 WBC 8.28 RBC 4.15 L MCV 90.4 MCH 29.2 MCHC 32.3 RDW Std Deviation 43.5 RDW Coeff of Mike 13.2 Plt Count 196 MPV 10.2 Albumin 2.9 L 2.7 L (1) Acute kidney failure Acute renal failure type: unspecified Qualified Code(s): N17.9 - Acute kidney failure, unspecified
[2020-01-01] MEDS: ONDANSETRON INJ 2 MG/ML 2 ML VIAL IV PRN (11:27)
[2020-01-01] MEDS: ACETAMINOPHEN 325 MG TAB PO PRN (12:55)
[2020-01-01] MEDS: EZETIMIBE 10 MG TABLET PO SCH (13:32)
[2020-01-01 14:39] LABS: BUN Creatinine Ratio 9.2 (10-20); Calcium 8.6 mg/dl (8.5-10.1); Creatinine Clr Calc Pharmacy 23.8 ml/min; Est GFR (African American) 26.1; Est GFR (Non-African American) 22.5; Potassium 3.9 mmol/L (3.5-5.1)
[2020-01-01 14:42] LABS: Albumin Globulin Ratio 1.1 (0.9-2); Bilirubin,Total 0.5 mg/dl (0.2-1); Globulin 2.8 gm/dl (2.5-4.0); Total Protein 5.8 gm/dl (6.4-8.2)
--- NOTE | 2020-01-01 15:14 | Hospitalist Progress Note ---
Date of Service January 01, 2020 Assessment & Plan (1) Abdominal pain: Cholelithiasis, with acute cholecystitis rule out - as per admission H and P "This is a 69-year-old female with past medical history significant for hyperlipidemia, prediabetes, diaphragmatic hernia, diverticulosis of large intestine without hemorrhage, chronic kidney disease stage III, fibromyalgia, history of basal cell cancer, generalized anxiety disorder, major depression who lives at home with her son, presents with ongoing abdominal pain. She is having abdominal pain for last few days. Initially started in the left lower quadrant and groin region, now is mostly in the lower abdomen and also in the back. She had history of diverticulosis so she thought she is having diverticulitis and has tele medicine and was prescribed Cipro and Flagyl which she started taking since Tuesday, but today she could not take the pills because she had several episodes of nausea/ vomiting and she also has episodes of diarrhea, so she came to the ER. In the ER, CT scan was done which is showing bilateral perinephric strand ing, but no diverticulitis on the preliminary report. Her white count was 13k. She is afebrile." -patient was given ceftriaxone and Levaquin in the ED and then admitting physician transitioned antibiotics to Ertapenem instead for now for possible underlying infection of unclear etiology -ultrasound shows "Cholelithiasis. No gallbladder wall thickening. However, the gallbladder is distended and the technologist reported a positive sonographic Forrester's sign. Therefore, this is concerning for a developing acute cholecystitis." -MRCP on 12/31/2019 1. Cholelithiasis within a mildly distended gallbladder. There is no clear MRI evidence of acute cholecystitis. If there is clinical concern for acute cholecystitis a nuclear hepatobiliary scan should be considered. 2. There is no intra or extrahepatic biliary ductal dilatation. No choledocholithiasis is seen. 3. There is nonspecific perinephric infiltration and fluid within the paracolic gutters, left greater than right. Correlate clinically and urinalysis for evidence of ascending urinary tract infection/pyelonephritis. 4. The liver is enlarged and steatotic. 5. Large hiatal hernia. 6. Trace pleural effusions and upper abdominal ascites. HIDA: There is no scintigraphic evidence of cholecystitis. -general surgery advised to give regular diet and monitor for symptoms, NPO after midnight. (2) Lesion of adrenal gland: A 2.7 cm right adrenal gland lesion on ultrasound which may be incidental finding (3) Acute kidney failure: Acute kidney injury on chronic kidney disease stage III possible pyelonephritis -admission WBC 13 K, no fevers, but based on acute kidney injury and no evidence of cholecystitis, will need to consider pyelonephritis as cause of some of the abdominal symptoms. upgrade antibiotics from Ertapenem to Zosyn q8 hours starting on 01/01/2020 -follow admission blood cultures -Baseline creatinine around 1.1, admission creatinine 2.09 and peaked as 2.9 by 12/31/2019 evening while on IV fluids, creatinine downtrending with IV fluids -nephrology following the patient Prediabetes by history -HbA1c levels is 5.3 Dyslipidemia -On Praluent subcutaneous q. 14 days. Generalized anxiety disorder and depression -On nortriptyline, Klonopin, and on Trintellix Deep vein thrombosis prophylaxis: Sequential compression devices for now Admission and Anticipated Discharge Date Admission Date: December 30, 2019 Subjective Patient still has generalized abdominal discomfort and back pains. no acute distress. no surgery as per general surgery at this time. on IV fluids because of JANET. patient agrees to upgrade to Zosyn if source of the problem from possible pyelonephritis since cholecystitis is ruled out Review of Systems Review of Systems: All systems reviewed & are unremarkable except as noted in Subjective Physical Exam Constitutional: WD/WN, vitals as above Eyes: PERRL, conjunctivae normal, anicteric sclerae EOM intact bilaterally ENMT: external ear and nose normal, oropharynx normal Neck: trachea midline, no thyromegaly normal visual inspection Respiratory: normal respiratory effort, lungs clear to auscultation Cardiovascular: Rate/Rhythm: regular rate Gastrointestinal (Abdomen): Percussion/Palpation: abdomen soft Musculoskeletal: Head/Neck/Chest: normocephalic and head atraumatic Neurologic: PERRL, EOMI, accommodation nl, no face palsy, no dysarthria CN's II-XI intact bilaterally Psychiatric: A+Ox3, euthymic affect Results & Data Results & Data ([facility]) Vital Signs (Past 12 Hours) Vital Signs Temp Pulse Resp BP Pulse Ox 01/01/20 06:52 37.2 C 90 16 124/77 93 (1) Acute kidney failure Acute renal failure type: unspecified Qualified Code(s): N17.9 - Acute kidney failure, unspecified (2) Abdominal pain Abdominal location: unspecified location Qualified Code(s): R10.9 - Unspecified abdominal pain
[2020-01-01] MEDS ORDERED: PIPERACILL/TAZOBAC CONSULT ACTIVE PRN (15:20)
[2020-01-01] MEDS ORDERED: PIPERACILLIN/TAZOBACTAM 4.5 GM in DEXTROSE 5% 100 ML IV ONE (15:30)
[2020-01-01] MEDS: NORTRIPTYLINE HCL 25 MG CAP PO SCH (21:09)
[2020-01-01] MEDS: PIPERACILLIN/TAZOBACTAM 3.375 GM in DEXTROSE 5% 100 ML IV SCH (21:10)
[2020-01-02] MEDS: ONDANSETRON INJ 2 MG/ML 2 ML VIAL IV PRN ×2 (00:12→09:49)
[2020-01-02] MEDS: PIPERACILLIN/TAZOBACTAM 3.375 GM in DEXTROSE 5% 100 ML IV SCH ×2 (04:21→14:28)
[2020-01-02 06:43] LABS: Basophils # (auto) 0.02 K/uL (0-0.2); Basophils % (auto) 0.3 %; Eosinophils # (auto) 0.52 K/uL (0-0.5); Eosinophils % (auto) 8.7 %; Hematocrit (blood only) 34.6 % (37-47); Hemoglobin 11.7 g/dL (12.0-16.0); Immature Granulocytes # (auto) 0.01 K/uL (0.00-0.02); Immature Granulocytes % (auto) 0.2 %; Lymphocytes # (auto) 2.44 K/uL (1.2-3.4); Lymphocytes % (auto) 40.7 %; Mean Corpuscular Hemoglobin 30.5 pg (25-34); Mean Corpuscular Hgb Conc 33.8 g/dL (32-36); Mean Corpuscular Volume 90.3 fL (80-100); Mean Platelet Volume 10.2 fL (7.4-10.4); Monocytes # (auto) 0.66 K/uL (0.11-0.59); Neutrophils # (auto) 2.34 K/uL (1.4-6.5); Neutrophils % (auto) 39.1 %; Platelet Count 181 K/uL (130-400); RDW Coefficient of Variation 13.1 % (11.5-14.5); RDW Standard Deviation 43.4 fL (36.4-46.3); Red Blood Count 3.83 M/uL (4.2-5.4); White Blood Count 5.99 K/uL (4.8-10.8)
[2020-01-02 07:18] LABS: Albumin Level 2.7 gm/dl (3.4-5.0); BUN Creatinine Ratio 9.7 (10-20); Calcium 8.3 mg/dl (8.5-10.1); Creatinine Clr Calc Pharmacy 26.4 ml/min; Est GFR (African American) 29.5; Est GFR (Non-African American) 25.5; Potassium 4.1 mmol/L (3.5-5.1)
[2020-01-02 07:21] LABS: Bilirubin,Total 0.7 mg/dl (0.2-1); Globulin 2.8 gm/dl (2.5-4.0); Total Protein 5.5 gm/dl (6.4-8.2)
[2020-01-02] MEDS: SODIUM CHLORIDE 0.9% 1000ML 1,000 ML IV SCH ×4 (08:29→22:50)
[2020-01-02] MEDS: EZETIMIBE 10 MG TABLET PO SCH (08:29)
[2020-01-02] MEDS: ASPIRIN 81 MG ECTAB PO SCH (08:29)
[2020-01-02] MEDS: VORTIOXETINE HYDROBROMIDE PO SCH (08:30)
[2020-01-02] MEDS: LORATADINE 10 MG TAB PO SCH (08:30)
[2020-01-02] MEDS: clonazePAM 0.5 MG TAB PO SCH ×3 (08:33→22:08)
--- NOTE | 2020-01-02 09:12 | Surgery Progress Note ---
Date of Service January 02, 2020 Assessment & Plan (1) Acute kidney failure: HIDA negative Cr slowly improving resume diet can see in clinic to discuss elective cholecystectomy seen with Dr. Boyer Supervising Physician Co-Signing Physician Notes Patient seen and examined, labs and imaging reviewed, agree with above. Patient tolerated most of her dinner last night, no worsening abdominal pain. HIDA scan was negative yesterday. Creatinine improving. No indication for urgent cholecystectomy at this time. Diet as tolerated, patient can follow-up as an outpatient if desires cholecystectomy. Subjective tolerated dinner Physical Exam Gastrointestinal (Abdomen): Percussion/Palpation: abdomen soft Results & Data Vital Signs (Past 12 Hours) Vital Signs Temp Pulse Resp BP BP Pulse Ox 01/02/20 08:17 36.7 C 64 18 109/70 94 01/01/20 22:58 36.5 C 68 18 108/68 96 PG Care Time/CCT Total # of Minutes Spent Total Time Spent with Patient: Total time spent is greater than 50% in coordination of care (as documented) at patient's floor/unit and/or counseling p atient: Coding Level of Care Code 57828 Inpt Consult Level 1 Diagnoses Acute kidney failure N17.9 Acute renal failure type: unspecified (1) Acute kidney failure Acute renal failure type: unspecified Qualified Code(s): N17.9 - Acute kidney failure, unspecified
--- NOTE | 2020-01-02 09:58 | Nephrology Progress Note ---
Date of Service January 02, 2020 Assessment & Plan (1) Acute kidney failure: Patient with acute kidney injury likely due to ischemic ATN in setting of NSAID use and intravascular volume depletion from vomiting and diarrhea. Baseline creatinine of 1.1. Patient admitted with a creatinine of 2 which peaked to 2.9 but improving today to 1.97. -Continue IV fluids at the current rate. -Monitor input output. -Avoid contrast. I explained to patient adverse effects of Advil and other NSAIDs. She promises to avoid taking given as an outpatient. -If creatinine continues a downward trend, patient can be discharged tomorrow from renal standpoint. (2) Cholelithiasis: Patient had a normal HIDA scan and no surgical interventions planned. GI and surgery following. She is continuing antibiotics empirically. Renally dose antibiotics for current GFR. (3) Lesion of adrenal gland: This appears to be a benign lesion. It will need follow-up as an outpatient. Admission and Anticipated Discharge Date Admission Date: December 30, 2019 Subjective Patient feels better today. She still has abdominal discomfort. She had a normal HIDA scan. Creatinine slightly downtrending today Review of Systems Review of Systems: All systems reviewed & are unremarkable except as noted in HPI & below Physical Exam Physical Exam: General exam: Appears comfortable, no acute distress HEENT: Pupils are equal and reactive to light Neck: No JVD, neck is supple trachea is midline Respiratory system: Clear breath sounds bilaterally. Gastrointestinal: Abdomen is soft, non distended, mildly tender, bowel sounds are present CVS: Regular rate and rhythm. No murmurs, rubs or gallops Musculoskeletal: No joint or muscle tenderness Extremities: Non tender, no edema, peripheral pulses are present Neuro: Oriented, no tremors, no focal neurological deficits Skin: No rashes Results & Data ([facility]) Vital Signs (Past 12 Hours) Vital Signs Temp Pulse Resp BP BP Pulse Ox 01/02/20 08:17 36.7 C 64 18 109/70 94 01/01/20 22:58 36.5 C 68 18 108/68 96 Laboratory Results 01/02/20 06:20 01/01/20 01/02/20 01/02/20 13:57 06:20 06:20 WBC 5.99 RBC 3.83 L MCV 90.3 MCH 30.5 MCHC 33.8 RDW Std Deviation 43.4 RDW Coeff of Mike 13.1 Plt Count 181 MPV 10.2 Albumin 3.0 L 2.7 L (1) Acute kidney failure Acute renal failure type: unspecified Qualified Code(s): N17.9 - Acute kidney failure, unspecified
--- NOTE | 2020-01-02 18:00 | Hospitalist Progress Note ---
Date of Service January 02, 2020 Assessment & Plan (1) Abdominal pain: Possible pyelonephritis, partially treated Cholelithiasis, with acute cholecystitis rule out per admitting service notes: - as per admission H and P "This is a 69-year-old female with past medical history significant for hyperlipidemia, prediabetes, diaphragmatic hernia, diverticulosis of large intestine without hemorrhage, chronic kidney disease stage III, fibromyalgia, history of basal cell cancer, generalized anxiety disorder, major depression who lives at home with her son, presents with ongoing abdominal pain. She is having abdominal pain for last few days. Initially started in the left lower quadrant and groin region, now is mostly in the lower abdomen and also in the back. She had history of diverticulosis so she thought she is having diverticulitis and has tele medicine and was prescribed Cipro and Flagyl which she started taking since Tuesday, but today she could not take the pills because she had several episodes of nausea/ vomiting and she also has episodes of diarrhea, so she came to the ER. In the ER, CT scan was done which is showing bilateral perinephric stranding, but no diverticulitis on the preliminary report. Her white count was 13k. She is afebrile." -patient was given ceftriaxone and Levaquin in the ED and then admitting physician transitioned antibiotics to Ertapenem instead for now for possible underlying infection of unclear etiology -ultrasound shows "Cholelithiasis. No gallbladder wall thickening. However, the gallbladder is distended and the technologist reported a positive sonographic Forrester's sign. Therefore, this is concerning for a developing acute cholecyst itis." -MRCP on 12/31/2019 1. Cholelithiasis within a mildly distended gallbladder. There is no clear MRI evidence of acute cholecystitis. If there is clinical concern for acute cholecystitis a nuclear hepatobiliary scan should be considered. 2. There is no intra or extrahepatic biliary ductal dilatation. No choledocholithiasis is seen. 3. There is nonspecific perinephric infiltration and fluid within the paracolic gutters, left greater than right. Correlate clinically and urinalysis for evidence of ascending urinary tract infection/pyelonephritis. 4. The liver is enlarged and steatotic. 5. Large hiatal hernia. 6. Trace pleural effusions and upper abdominal ascites. HIDA: There is no scintigraphic evidence of cholecystitis. -general surgery advised to give regular diet and monitor for symptoms, NPO after midnight. 01/02/2020 Remains afebrile, no leukocytosis Urinalysis unremarkable However patient already received 3 days of ciprofloxacin plus metronidazole catia or to admission, question partially treated UTI For now continue ceftriaxone 2 g IV daily for presumed pyelonephritis (2) Lesion of adrenal gland: A 2.7 cm right adrenal gland lesion on ultrasound which may be incidental finding (3) Acute kidney failure: Acute kidney injury on chronic kidney disease stage III possible pyelonephritis -admission WBC 13 K, no fevers, but based on acute kidney injury and no evidence of cholecystitis, will need to consider pyelonephritis as cause of some of the abdominal symptoms. upgrade antibiotics from Ertapenem to Zosyn q8 hours starting on 01/01/2020 -follow admission blood cultures -Baseline creatinine around 1.1, admission creatinine 2.09 and peaked as 2.9 by 12/31/2019 evening while on IV fluids, creatinine downtrending with IV fluids -nephrology following the patient 01/02/2020 18 continues to improve, 1.9 Positive bipedal edema Lower IV fluids to 75 cc/h Monitor closely, appreciate nephrology service recommendations Prediabetes by history -HbA1c levels is 5.3 Dyslipidemia -On Praluent subcutaneous q. 14 days. Generalized anxiety disorder and depression -On nortriptyline, Klonopin, and on Trintellix Deep vein thrombosis prophylaxis: Sequential compression devices for now Disposition Anticipate discharge to home when medically stable Admission and Anticipated Discharge Date Admission Date: December 30, 2019 Subjective Follow-up for pyelonephritis, acute renal failure Seen resting in bed, comfortable, not in distress States she feels improved today Minimal lower abdominal discomfort, had some nausea this this morning, did not tolerate solids yet No fevers or chills, shortness of breath, chest pain, headaches, dizziness No problems with urination No other symptoms Review of Systems Review of Systems: All systems reviewed & are unremarkable except as noted in HPI & below Physical Exam 2 Physical Exam: General- oriented x 3, not in distress, speaks in sentences with no effort or accessory muscle use Head- atraumatic Eyes- PERRL, EOMI, anicteric ENT- oropharynx clear Neck- supple, no JVD, no adenopathy, no thyromegaly; carotids +2/2, no bruits appreciated Lungs- clear to auscultation bilaterally, no rales/wheezes Heart- normal rate, regular rhythm; no murmur, no gallop, no rub appreciated Abdomen-hyperactive bowel sounds, nondistended, soft, nontender, no masses or hepatosplenomegaly Extremities-mild pretibial edema, no calf tenderness; peripheral pulses intact Neuro- alert, oriented x 3; CN 2-12 grossly intact; motor 5/5 bilaterally;sensation 100% on all extremities; no other gross focal neurologic deficits Skin- warm & dry Results & Data Results & Data ([facility]) Vital Signs (Past 12 Hours) Vital Signs Temp Pulse Resp BP Pulse Ox 01/02/20 16:33 36.7 C 76 18 117/68 95 01/02/20 08:17 36.7 C 64 18 109/70 94 Laboratory Results Laboratory Results - last 24 hr 01/02/20 01/02/20 06:20 06:20 WBC 5.99 RBC 3.83 L Hgb 11.7 L Hct 34.6 L MCV 90.3 MCH 30.5 MCHC 33.8 RDW Std Deviation 43.4 RDW Coeff of Mike 13.1 Plt Count 181 MPV 10.2 Immature Gran % (Auto) 0.2 Neut % (Auto) 39.1 Lymph % (Auto) 40.7 [place] % (Auto) 11.0 Eos % (Auto) 8.7 Baso % (Auto) 0.3 Neut # (Auto) 2.34 Lymph # (Auto) 2.44 [place] # (Auto) 0.66 H Eos # (Auto) 0.52 H Baso # (Auto) 0.02 Immature Gran # (Auto) 0.01 Sodium 143 Potassium 4.1 Chloride 116 H Carbon Dioxide 25 Anion Gap 2.0 L BUN 19 H Creatinine 1.97 H Est Cr Clr Drug Dosing 26.4 Est GFR ( Amer) 29.5 Est GFR (Non-Af Amer) 25.5 BUN/Creatinine Ratio 9.7 L Glucose 85 Calcium 8.3 L Total Bilirubin 0.7 AST 32 ALT 29 Alkaline Phosphatase 45 Total Protein 5.5 L Albumin 2.7 L Globulin 2.8 Albumin/Globulin Ratio 1.0 (1) Acute kidney failure Acute renal failure type: unspecified Qualified Code(s): N17.9 - Acute kidney failure, unspecified (2) Abdominal pain Abdominal location: unspecified location Qualified Code(s): R10.9 - Unspecified abdominal pain
[2020-01-02] MEDS: cefTRIAXone SODIUM 2,000 MG in DEXTROSE 5% 50 ML IV SCH (19:34)
[2020-01-02] MEDS: NORTRIPTYLINE HCL 25 MG CAP PO SCH (22:08)
[2020-01-03] MEDS: ACETAMINOPHEN 325 MG TAB PO PRN ×2 (05:31→18:40)
--- NOTE | 2020-01-03 07:41 | Nephrology Progress Note ---
Date of Service January 03, 2020 Assessment & Plan (1) Acute kidney failure: Patient with acute kidney injury likely due to ischemic ATN in setting of NSAID use and intravascular volume depletion from vomiting and diarrhea. Baseline creatinine of 1.1. Patient admitted with a creatinine of 2 which -Monitor input output. -Avoid contrast. I explained to patient adverse effects of Advil and other NSAIDs. She promises to avoid taking given as an outpatient. -If creatinine continues a downward trend, patient can be discharged later today from renal standpoint. (2) Cholelithiasis: Patient had a normal HIDA scan and no surgical interventions planned. GI and surgery following. She is continuing antibiotics empirically. Renally dose antibiotics for current GFR. Patient would like to try regular diet. Will defer to primary team (3) Lesion of adrenal gland: This appears to be a benign lesion. It will need follow-up as an outpatient. Admission and Anticipated Discharge Date Admission Date: December 30, 2019 Subjective Patient reports improvement in the abdominal discomfort. She has been on clear liquids. She would like to try solid food today. She is complaining of leg swelling. No shortness of breath. Review of Systems Review of Systems: All systems reviewed & are unremarkable except as noted in HPI & below Physical Exam Physical Exam: General exam: Appears comfortable, no acute distress HEENT: Pupils are equal and reactive to light Neck: No JVD, neck is supple trachea is midline Respiratory system: Clear breath sounds bilaterally. Gastrointestinal: Abdomen is soft, non distended, mildly tender, bowel sounds are present CVS: Regular rate and rhythm. No murmurs, rubs or gallops Musculoskeletal: No joint or muscle tenderness Extremities: Non tender, trace edema, peripheral pulses are present Neuro: Oriented, no tremors, no focal neurological deficits Skin: No rashes Results & Data ([facility]) Vital Signs (Past 12 Hours) Vital Signs Temp Pulse Resp BP BP Pulse Ox 01/03/20 07:28 36.8 C 59 L 18 119/72 94 01/02/20 23:02 36.6 C 66 20 132/83 95 Laboratory Results 01/02/20 06:20 (1) Acute kidney failure Acute renal failure type: unspecified Qualified Code(s): N17.9 - Acute kidney failure, unspecified
[2020-01-03 08:54] LABS: BUN Creatinine Ratio 9.1 (10-20); Calcium 8.9 mg/dl (8.5-10.1); Creatinine Clr Calc Pharmacy 37.7 ml/min; Est GFR (African American) 45.4; Est GFR (Non-African American) 39.2; Potassium 3.9 mmol/L (3.5-5.1)
[2020-01-03] MEDS: VORTIOXETINE HYDROBROMIDE PO SCH (09:47)
[2020-01-03] MEDS: EZETIMIBE 10 MG TABLET PO SCH (09:48)
[2020-01-03] MEDS: ASPIRIN 81 MG ECTAB PO SCH (09:48)
[2020-01-03] MEDS: LORATADINE 10 MG TAB PO SCH (09:48)
[2020-01-03] MEDS: clonazePAM 0.5 MG TAB PO SCH ×2 (09:48→21:19)
[2020-01-03] MEDS ORDERED: LOPERAMIDE HCL 2 MG CAP PO PRN (15:32)
--- NOTE | 2020-01-03 15:44 | Hospitalist Progress Note ---
Date of Service January 03, 2020 Assessment & Plan (1) Abdominal pain: 69-year-old female with history of prediabetes, dyslipidemia, diaphragmatic hernia, diverticulosis, CKD stage III Fibromyalgia And others problems noted below presenting with abdominal pain. Abdominal pain Possible pyelonephritis, partially treated on admission -- Cholelithiasis, acute cholecystitis ruled out per admitting service notes: - as per admission H and P "This is a 69-year-old female with past medical history significant for hyperlipidemia, prediabetes, diaphragmatic hernia, diverticulosis of large intestine without hemorrhage, chronic kidney disease stage III, fibromyalgia, history of basal cell cancer, generalized anxiety disorder, major depression who lives at home with her son, presents with ongoing abdominal pain. She is having abdominal pain for last few days. Initially started in the left lower quadrant and groin region, now is mostly in the lower abdomen and also in the back. She had history of diverticulosis so she thought she is having diverticulitis and has tele medicine and was prescribed Cipro and Flagyl which she started taking since Tuesday, but today she could not take the pills because she had several episodes of nausea/ vomiting and she also has episodes of diarrhea, so she came to the ER. In the ER, CT scan was done which is showing bilateral perinephric stranding, but no diverticulitis on the preliminary report. Her white count was 13k. She is afebrile." - patient was given ceftriaxone and Levaquin in the ED and then admitting physician transitioned antibiotics to Ertapenem instead for now for possible underlying infection of unclear etiology - ultrasound shows "Cholelithiasis. No gallbladder wall thickening. However, the gallbladder is distended and the technologist reported a positive sonographic Forrester's sign. Therefore, this is concerning for a developing acute cholecystitis." - MRCP on 12/31/2019 1. Cholelithiasis within a mildly distended gallbladder. There is no clear MRI evidence of acute cholecystitis. If there is clinical concern for acute cholecystitis a nuclear hepatobiliary scan should be considered. 2. There is no intra or extrahepatic biliary ductal dilatation. No choledocholithiasis is seen. 3. There is nonspecific perinephric infiltration and fluid within the paracolic gutters, left greater than right. Correlate clinically and urinalysis for evidence of ascending urinary tract infection/pyelonephritis. 4. The liver is enlarged and steatotic. 5. Large hiatal hernia. 6. Trace pleural effusions and upper abdominal ascites. - HIDA: There is no scintigraphic evidence of cholecystitis. 01/03/2020 Remains afebrile, no leukocytosis Urinalysis unremarkable However patient already received 3 days of ciprofloxacin plus metronidazole prior to admission, question partially treated UTI For now continue ceftriaxone 2 g IV daily for presumed pyelonephritis Positive diarrhea today Check for C. difficile Resume IV fluids Monitor creatinine (2) Lesion of adrenal gland: A 2.7 cm right adrenal gland lesion on ultrasound which may be incidental finding (3) Acute kidney failure: Acute kidney injury on chronic kidney disease stage III possible pyelonephritis -admission WBC 13 K, no fevers, but based on acute kidney injury and no evidence of cholecystitis, will need to consider pyelonephritis as cause of some of the abdominal symptoms. upgrade antibiotics from Ertapenem to Zosyn q8 hours starting on 01/01/2020 -follow admission blood cultures -Baseline creatinine around 1.1, admission creatinine 2.09 and peaked as 2.9 by 12/31/2019 evening while on IV fluids, creatinine downtrending with IV fluids -nephrology following the patient 01/03/2020 Creatinine continues to improve, today at 1.3 Positive diarrhea today Work-up per #1 Resume gentle IV fluids Monitor creatinine Prediabetes by history -HbA1c levels is 5.3 Dyslipidemia -On Praluent subcutaneous q. 14 days. Generalized anxiety disorder and depression -On nortriptyline, Klonopin, and on Trintellix Deep vein thrombosis prophylaxis: Start heparin subcutaneous every 8 hours Disposition Anticipate discharge to home when medically stable Admission and Anticipated Discharge Date Admission Date: December 30, 2019 Subjective Follow-up for pyelonephritis, acute renal failure Seen resting in bed, not in distress, appears concerned States she has lower abdominal cramping today, associated with 3 episodes of diarrhea, nonbloody No problems with urination No fevers or chills No chest pain, shortness of breath, palpitations, dizziness No other symptom Review of Systems Review of Systems: All systems reviewed & are unremarkable except as noted in HPI & below Physical Exam 2 Physical Exam: General- oriented x 3, not in distress, speaks in sentences with no effort or accessory muscle use Eyes- anicteric Neck- no JVD Lungs- clear breath sounds bilaterally, no rales/wheezes Heart- normal rate, regular rhythm; no murmurs Abdomen-hyperactive bowel sounds, nondistended, soft, nontender Extremities- no pretibial edema, no calf tenderness Neuro- alert, oriented x 3; no gross focal neurologic deficits Skin- warm & dry Results & Data Results & Data ([facility]) Vital Signs (Past 12 Hours) Vital Signs Temp Pulse Resp BP Pulse Ox 01/03/20 07:28 36.8 C 59 L 18 119/72 94 Laboratory Results Laboratory Results - last 24 hr 01/03/20 07:56 Sodium 143 Potassium 3.9 Chloride 115 H Carbon Dioxide 22 Anion Gap 6.0 BUN 13 Creatinine 1.38 H D Est Cr Clr Drug Dosing 37.7 Est GFR ( Amer) 45.4 Est GFR (Non-Af Amer) 39.2 BUN/Creatinine Ratio 9.1 L Glucose 84 Calcium 8.9 (1) Abdominal pain Abdominal location: unspecified location Qualified Code(s): R10.9 - Unspecified abdominal pain (2) Acute kidney failure Acute renal failure type: unspecified Qualified Code(s): N17.9 - Acute kidney failure, unspecified
[2020-01-03] MEDS: SODIUM CHLORIDE 0.9% 1000ML 1,000 ML IV SCH (16:02)
[2020-01-03] MEDS: cefTRIAXone SODIUM 2,000 MG in DEXTROSE 5% 50 ML IV SCH (18:39)
[2020-01-03] MEDS: NORTRIPTYLINE HCL 25 MG CAP PO SCH (21:04)
[2020-01-03] MEDS: HEPARIN SOD 5,000 UNIT/0.5 ML VIAL SQ SCH (21:21)
[2020-01-03] MEDS: DICLOFENAC SOD 1% GEL 100 GM TUBE EXT SCH (22:01)
[2020-01-04] MEDS: MoRPHine SULFATE 2 MG/ML CARP IV PRN (00:26)
[2020-01-04] MEDS: HEPARIN SOD 5,000 UNIT/0.5 ML VIAL SQ SCH ×3 (06:23→20:38)
[2020-01-04] MEDS: SODIUM CHLORIDE 0.9% 1000ML 1,000 ML IV SCH ×2 (06:26→06:41)
[2020-01-04] MEDS: EZETIMIBE 10 MG TABLET PO SCH (09:17)
[2020-01-04] MEDS: DICLOFENAC SOD 1% GEL 100 GM TUBE EXT SCH ×2 (09:18→20:40)
[2020-01-04] MEDS: LORATADINE 10 MG TAB PO SCH (09:18)
[2020-01-04] MEDS: VORTIOXETINE HYDROBROMIDE PO SCH (09:18)
[2020-01-04] MEDS: ASPIRIN 81 MG ECTAB PO SCH (09:18)
[2020-01-04] MEDS: clonazePAM 0.5 MG TAB PO SCH ×2 (09:21→20:39)
[2020-01-04] MEDS: ONDANSETRON INJ 2 MG/ML 2 ML VIAL IV PRN (10:45)
[2020-01-04 10:58] LABS: BUN Creatinine Ratio 8.5 (10-20); Calcium 9.6 mg/dl (8.5-10.1); Creatinine Clr Calc Pharmacy 43.7 ml/min; Est GFR (African American) 54.3; Est GFR (Non-African American) 46.9; Potassium 3.6 mmol/L (3.5-5.1)
--- NOTE | 2020-01-04 13:42 | CT Scan Report ---
CT OF THE ABDOMEN AND PELVIS WITHOUT CONTRAST CLINICAL HISTORY: persistent nausea and L sided abdominal discomfort COMPARISON STUDY: CT of the abdomen and pelvis December 30, 2019. MRCP December 31, 2019 TECHNIQUE: Axial images of the abdomen and pelvis were obtained without IV contrast. Images were revi ewed in the axial, sagittal, and coronal planes. Automated exposure control was utilized for the bryn dy. A dose lowering technique was utilized adhering to the principles of ALARA. FINDINGS: A moderate sized hiatal hernia is noted. Small bilateral pleural effusions are noted. No pn eumatosis, free air or portal venous gas is present. A 2.6 cm hypodense right adrenal lesion favors a n adenoma. Unenhanced images of the spleen, left adrenal gland, kidneys and pancreas are unremarkable . There is no hydronephrosis. The gallbladder is no longer distended. There is a small amount of francine cholecystic infiltration and fluid. Colonic diverticulosis is noted without evidence for acute divert iculitis. The appendix is unremarkable. There is no ascites. No suspicious osseous lesions are noted. There is no lymphadenopathy. IMPRESSION: 1. Interval resolution of gallbladder distention. Mild pericholecystic infiltration and fluid however hepatobiliary scan of January 01, 2020 demonstrated no evidence for acute cholecystitis. 2. No bowel obstruction. 3. Colonic diverticulosis without evidence for acute diverticulitis. 4. Moderate-sized hiatal hernia. 5. Small bilateral pleural effusions. ACT 112: Negative or not required by law. Electronically signed by: Rony Beard M.D. 01/04/2020 1:40 PM
--- NOTE | 2020-01-04 15:07 | Hospitalist Progress Note ---
Date of Service January 04, 2020 Assessment & Plan (1) Abdominal pain: 69-year-old female with history of prediabetes, dyslipidemia, diaphragmatic hernia, diverticulosis, CKD stage III Fibromyalgia And others problems noted below presenting with abdominal pain. Abdominal pain Possible pyelonephritis, partially treated on admission -- Cholelithiasis, acute cholecystitis ruled out per admitting service notes: - as per admission H and P "This is a 69-year-old female with past medical history significant for hyperlipidemia, prediabetes, diaphragmatic hernia, diverticulosis of large intestine without hemorrhage, chronic kidney disease stage III, fibromyalgia, history of basal cell cancer, generalized anxiety disorder, major depression who lives at home with her son, presents with ongoing abdominal pain. She is having abdominal pain for last few days. Initially started in the left lower quadrant and groin region, now is mostly in the lower abdomen and also in the back. She had history of diverticulosis so she thought she is having diverticulitis and has tele medicine and was prescribed Cipro and Flagyl which she started taking since Tuesday, but today she could not take the pills because she had several episodes of nausea/ vomiting and she also has episodes of diarrhea, so she came to the ER. In the ER, CT scan was done which is showing bilateral perinephric stranding, but no diverticulitis on the preliminary report. Her white count was 13k. She is afebrile." - patient was given ceftriaxone and Levaquin in the ED and then admitting physician transitioned antibiotics to Ertapenem instead for now for possible underlying infection of unclear etiology - ultrasound shows "Cholelithiasis. No gallbladder wall thickening. However, the gallbladder is distended and the technologist reported a positive sonographic Forrester's sign. Therefore, this is concerning for a developing acute cholecystitis." - MRCP on 12/31/2019 1. Cholelithiasis within a mildly distended gallbladder. There is no clear MRI evidence of acute cholecystitis. If there is clinical concern for acute cholecystitis a nuclear hepatobiliary scan should be considered. 2. There is no intra or extrahepatic biliary ductal dilatation. No choledocholithiasis is seen. 3. There is nonspecific perinephric infiltration and fluid within the paracolic gutters, left greater than right. Correlate clinically and urinalysis for evidence of ascending urinary tract infection/pyelonephritis. 4. The liver is enlarged and steatotic. 5. Large hiatal hernia. 6. Trace pleural effusions and upper abdominal ascites. - HIDA: There is no scintigraphic evidence of cholecystitis. 01/04/2020 Remains afebrile, no leukocytosis Urinalysis unremarkable However patient already received 3 days of ciprofloxacin plus metronidazole prior to admission, question partially treated UTI For now continue ceftriaxone 2 g IV daily for presumed pyelonephritis Diarrhea resolved, negative for C. difficile Continue ceftriaxone IV (+) nausea, L sided abdominal pain repeat CT abd/pelvis: no acute process requested Dr. Jorgensen to re-evaluate the patient (2) Lesion of adrenal gland: A 2.7 cm right adrenal gland lesion on ultrasound which may be incidental finding (3) Acute kidney failure: Acute kidney injury on chronic kidney disease stage III possible pyelonephritis -admission WBC 13 K, no fevers, but based on acute kidney injury and no evidence of cholecystitis, will need to consider pyelonephritis as cause of some of the abdominal symptoms. upgrade antibiotics from Ertapenem to Zosyn q8 hours starting on 01/01/2020 -follow admission blood cultures -Baseline creatinine around 1.1, admission creatinine 2.09 and peaked as 2.9 by 12/31/2019 evening while on IV fluids, creatinine downtrending with IV fluids -nephrology following the patient 01/04/2020 Creatinine continues to improve, today at 1.1 d/c IV fluids Prediabetes by history -HbA1c levels is 5.3 Dyslipidemia -On Praluent subcutaneous q. 14 days. Generalized anxiety disorder and depression -On nortriptyline, Klonopin, and on Trintellix Deep vein thrombosis prophylaxis: Start heparin subcutaneous every 8 hours Disposition Anticipate discharge to home when medically stable Admission and Anticipated Discharge Date Admission Date: December 30, 2019 Subjective ff up for pyelonephritis, abdominal pain seen resting in bed, comfortable no diarrhea but reports nausea after having breakfast also reports left sided abdominal discomfort denies urinary symptom, fever or chills No other symptoms Review of Systems Review of Systems: All systems reviewed & are unremarkable except as noted in HPI & below Physical Exam Physical Exam: General- oriented x 3, not in distress, speaks in sentences with no effort or accessory muscle use Eyes- anicteric Neck- no JVD Lungs- clear BS, no crackles or wheezing bilaterally Heart- normal rate, regular rhythm; no murmurs Abdomen- normal bowel sounds, nondistended, soft, nontender Extremities-mild pretibial edema, no calf tenderness Neuro- alert, oriented x 3; no gross focal neurologic deficits Skin- warm & dry Results & Data Results & Data ([facility]) Vital Signs (Past 12 Hours) Vital Signs Temp Pulse Resp BP Pulse Ox 01/04/20 07:40 36.7 C 62 16 161/82 H 96 Laboratory Results Laboratory Results - last 24 hr 01/04/20 01/04/20 10:05 10:22 Sodium 142 Potassium 3.6 Chloride 111 H Carbon Dioxide 28 Anion Gap 4.0 BUN 10 Creatinine 1.19 Est Cr Clr Drug Dosing 43.7 Est GFR ( Amer) 54.3 Est GFR (Non-Af Amer) 46.9 BUN/Creatinine Ratio 8.5 L Glucose 89 Calcium 9.6 Stl C. diff Tox B Gene Negative Cdiff Gene (1) Acute kidney failure Acute renal failure type: unspecified Qualified Code(s): N17.9 - Acute kidney failure, unspecified (2) Abdominal pain Abdominal location: unspecified location Qualified Code(s): R10.9 - Unspecified abdominal pain
--- NOTE | 2020-01-04 15:16 | Nephrology Progress Note ---
Date of Service January 04, 2020 Assessment & Plan (1) Acute kidney failure: Patient with acute kidney injury likely due to ischemic ATN in setting of NSAID use and intravascular volume depletion from vomiting and diarrhea. Baseline creatinine of 1.1. Patient admitted with a creatinine of 2 which has down trended to 1.38 today -Monitor input output. -Avoid contrast. I explained to patient adverse effects of Advil and other NSAIDs. She promises to avoid taking given as an outpatient. -patient can be discharged later today from renal standpoint. (2) Cholelithiasis: Patient had a normal HIDA scan and no surgical interventions planned. GI and surgery following. She is continuing antibiotics empirically. Renally dose antibiotics for current GFR. Patient tolerating solid food now. (3) Lesion of adrenal gland: This appears to be a benign lesion. It will need follow-up as an outpatient. Admission and Anticipated Discharge Date Admission Date: December 30, 2019 Subjective Feels better. No SOB. has occasional abdominal pain. Cr better at 1.3 Review of Systems Review of Systems: All systems reviewed & are unremarkable except as noted in HPI & below Physical Exam Physical Exam: General exam: Appears comfortable, no acute distress HEENT: Pupils are equal and reactive to light Neck: No JVD, neck is supple trachea is midline Respiratory system: Clear breath sounds bilaterally. Gastrointestinal: Abdomen is soft, non distended, non tender, bowel sounds are present CVS: Regular rate and rhythm. No murmurs, rubs or gallops Musculoskeletal: No joint or muscle tenderness Extremities: Non tender, no edema, peripheral pulses are present Neuro: Oriented, no tremors, no focal neurological deficits Skin: No rashes Results & Data ([facility]) Vital Signs (Past 12 Hours) Vital Signs Temp Pulse Resp BP Pulse Ox 01/04/20 07:40 36.7 C 62 16 161/82 H 96 Laboratory Results 01/04/20 10:22 (1) Acute kidney failure Acute renal failure type: unspecified Qualified Code(s): N17.9 - Acute kidney failure, unspecified
[2020-01-04] MEDS: LACTOBACILLUS ACIDOPHILUS (FLORANEX) TAB PO SCH ×2 (16:56→20:39)
[2020-01-04] MEDS: cefTRIAXone SODIUM 2,000 MG in DEXTROSE 5% 50 ML IV SCH (18:33)
[2020-01-04] MEDS: ACETAMINOPHEN 325 MG TAB PO PRN ×2 (19:29→23:21)
[2020-01-04] MEDS: NORTRIPTYLINE HCL 25 MG CAP PO SCH (20:40)
[2020-01-05] MEDS: HEPARIN SOD 5,000 UNIT/0.5 ML VIAL SQ SCH ×2 (06:01→13:41)
[2020-01-05] MEDS: ACETAMINOPHEN 325 MG TAB PO PRN ×2 (06:18→12:06)
[2020-01-05] MEDS: clonazePAM 0.5 MG TAB PO SCH (08:54)
[2020-01-05] MEDS: ASPIRIN 81 MG ECTAB PO SCH (08:54)
[2020-01-05] MEDS: LORATADINE 10 MG TAB PO SCH (08:54)
[2020-01-05] MEDS: VORTIOXETINE HYDROBROMIDE PO SCH (08:55)
[2020-01-05] MEDS: LACTOBACILLUS ACIDOPHILUS (FLORANEX) TAB PO SCH ×2 (08:55→12:07)
[2020-01-05] MEDS: DICLOFENAC SOD 1% GEL 100 GM TUBE EXT SCH (08:55)
[2020-01-05] MEDS: EZETIMIBE 10 MG TABLET PO SCH (08:57)
--- NOTE | 2020-01-05 09:46 | Nephrology Progress Note ---
Date of Service January 05, 2020 Assessment & Plan (1) Acute kidney failure: Patient with acute kidney injury likely due to ischemic ATN in setting of NSAID use and intravascular volume depletion from vomiting and diarrhea. Baseline creatinine of 1.1. Patient admitted with a creatinine of 2 which has down trended to 1.1 today -Monitor input output. -Avoid contrast. I explained to patient adverse effects of Advil and other NSAIDs. She promises to avoid taking given as an outpatient. -Renal will sign off. Please call if additional questions or concerns. Patient can be discharged follow-up with PCP. No need for renal follow-up unless if creatinine starts going up. (2) Cholelithiasis: Patient had a normal HIDA scan and no surgical interventions planned. GI and surgery following. She is continuing antibiotics empirically. Renally dose antibiotics for current GFR. Patient tolerating solid food now. (3) Lesion of adrenal gland: This appears to be a benign lesion. It will need follow-up as an outpatient by primary care physician and nephrology referral as needed. Admission and Anticipated Discharge Date Admission Date: December 30, 2019 Subjective Patient complaining of pain in the left hypochondrium. No shortness of breath or leg swelling. Renal function is almost back to baseline. Review of Systems Review of Systems: All systems reviewed & are unremarkable except as noted in HPI & below Physical Exam Physical Exam: General exam: Appears comfortable, no acute distress HEENT: Pupils are equal and reactive to light Neck: No JVD, neck is supple trachea is midline Respiratory system: Clear breath sounds bilaterally. Gastrointestinal: Abdomen is soft, non distended, non tender, bowel sounds are present CVS: Regular rate and rhythm. No murmurs, rubs or gallops Musculoskeletal: No joint or muscle tenderness Extremities: Non tender, no edema, peripheral pulses are present Neuro: Oriented, no tremors, no focal neurological deficits Skin: No rashes Results & Data ([facility]) Vital Signs (Past 12 Hours) Vital Signs Temp Pulse Resp BP Pulse Ox 01/05/20 07:48 36.5 C 64 16 162/91 H 93 01/04/20 23:17 36.6 C 69 16 148/87 H 94 Laboratory Results 01/04/20 10:22 (1) Acute kidney failure Acute renal failure type: unspecified Qualified Code(s): N17.9 - Acute kidney failure, unspecified
[2020-01-05] MEDS: MoRPHine SULFATE 2 MG/ML CARP IV PRN (10:00)
--- NOTE | 2020-01-05 11:33 | Hospitalist Progress Note ---
Date of Service delayed entry date of service as noted below January 05, 2020 Assessment & Plan (1) Abdominal pain: 69-year-old female with history of prediabetes, dyslipidemia, diaphragmatic hernia, diverticulosis, CKD stage III Fibromyalgia And others problems noted below presenting with abdominal pain. Abdominal pain Possible pyelonephritis, partially treated on admission Cholelithiasis, acute cholecystitis ruled out per admitting service notes: - as per admission H and P "This is a 69-year-old female with past medical history significant for hyperlipidemia, prediabetes, diaphragmatic hernia, diverticulosis of large intestine without hemorrhage, chronic kidney disease stage III, fibromyalgia, history of basal cell cancer, generalized anxiety disorder, major depression who lives at home with her son, presents with ongoing abdominal pain. She is having abdominal pain for last few days. Initially started in the left lower quadrant and groin region, now is mostly in the lower abdomen and also in the back. She had history of diverticulosis so she thought she is having diverticulitis and has tele medicine and was prescribed Cipro and Flagyl which she started taking since Tuesday, but today she could not take the pills because she had several episodes of nausea/ vomiting and she also has episodes of diarrhea, so she came to the ER. In the ER, CT scan was done which is showing bilateral perinephric stranding, but no diverticulitis on the preliminary report. Her white count was 13k. She is afebrile." - ultrasound shows "Cholelithiasis. No gallbladder wall thickening. However, the gallbladder is distended and the technologist reported a positive sonographic Forrester's sign. Therefore, this is concerning for a developing acute cholecystitis." - MRCP on 12/31/2019 1. Cholelithiasis within a mildly distended gallbladder. There is no clear MRI evidence of acute cholecystitis. If there is clinical concern for acute cholecystitis a nuclear hepatobiliary scan should be considered. 2. There is no intra or extrahepatic biliary ductal dilatation. No choledocholithiasis is seen. 3. There is nonspecific perinephric infiltration and fluid within the paracolic gutters, left greater than right. Correlate clinically and urinalysis for evidence of ascending urinary tract infection/pyelonephritis. 4. The liver is enlarged and steatotic. 5. Large hiatal hernia. 6. Trace pleural effusions and upper abdominal ascites. - HIDA: There is no scintigraphic evidence of cholecystitis. - GI and General Surger consulted cholecystectomy not recommended ff up as outpatient Urinalysis unremarkable However patient already received 3 days of ciprofloxacin plus metronidazole prior to admission, question partially treated UTI continue ceftriaxone 2 g IV daily for presumed pyelonephritis Diarrhea resolved, negative for C. difficile given ceftriaxone IV--> changed to course of Cefdinir PO on discharge ff up with PCP in week patient's nausea and L sided abdominal pain persisted during admission, but eventually resolved repeat CT abd/pelvis: no acute process requested GI Dr. Jorgensen to re-evaluate the patient--> "Recommend trial of Pantoprazole 40 mg by mouth each morning 1/2 hour prior to breakfast. [facility] due to pain and the fact that she is past due for screening Recommend Low fat and Low fiber diet at present Ff up with Dr. Boyer for Cholelithiasis (2) Lesion of adrenal gland: A 2.7 cm right adrenal gland lesion on ultrasound which may be incidental finding further work up and follow up as outpatient (3) Acute kidney failure: Acute kidney injury on chronic kidney disease stage III possible pyelonephritis -admission WBC 13 K, no fevers, but based on acute kidney injury and no evidence of cholecystitis, will need to consider pyelonephritis as cause of some of the abdominal symptoms. upgrade antibiotics from Ertapenem to Zosyn q8 hours starting on 01/01/2020 -follow admission blood cultures -Baseline creatinine around 1.1, admission creatinine 2.09 and peaked as 2.9 by 12/31/2019 evening while on IV fluids, creatinine downtrending with IV fluids -nephrology followed the patient - after IV fluids, Creatinine improved to baseline 1.1 Prediabetes by history -HbA1c levels is 5.3 Dyslipidemia -On Praluent subcutaneous q. 14 days. Generalized anxiety disorder and depression -On nortriptyline, Klonopin, and on Trintellix Disposition d/c home ff up with PCP in 1 week ff up with Admission and Anticipated Discharge Date Admission Date: December 30, 2019 Subjective ff up for pyelonephritis, etc seen resting in bed, comfortable states she feels better overall no nausea, tolerating diet well minimal L abdominal discomfort, (+) normal BMs no fever/chills no other symptoms states she is ready and would like to be discharged Review of Systems Review of Systems: All systems reviewed & are unremarkable except as noted in HPI & below Physical Exam Physical Exam: General- oriented x 3, not in distress, speaks in sentences with no effort or accessory muscle use Eyes- anicteric Neck- no JVD Lungs- clear breath sounds bilaterally Heart- normal rate, regular rhythm; no murmurs Abdomen- normal bowel sounds, nondistended, soft, nontender no cva tenderness Extremities- trace pretibial edema, no calf tenderness Neuro- alert, oriented x 3; no gross focal neurologic deficits Skin- warm & dry Results & Data Results & Data ([facility]) Vital Signs (Past 12 Hours) Vital Signs Temp Pulse Resp BP Pulse Ox 01/05/20 09:57 69 148/92 H 94 01/05/20 07:48 36.5 C 64 16 162/91 H 93 Laboratory Results all noted and reviewed (1) Acute kidney failure Acute renal failure type: unspecified Qualified Code(s): N17.9 - Acute kidney failure, unspecified (2) Abdominal pain Abdominal location: unspecified location Qualified Code(s): R10.9 - Unspecified abdominal pain
--- NOTE | 2020-01-05 12:22 | Gastrointestinal Consultation ---
Date of Consultation January 05, 2020 Assessment & Plan (1) Abdominal pain: Recommend trial of Pantoprazole 40 mg by mouth each morning 1/2 hour prior to breakfast. Followup with [facility] on discharge for Colonoscopy due to pain and the fact that she is past due for screening Recommend Low fat and Low fiber diet at present Continue supportive care. (2) Cholelithiasis: She is to followup with Dr. Boyer as an outpatient if symptoms worsen due to cholelithiasis History of Present Illness Reason for Consultation: Abdominal pain Attending Physician: Jeremias Fisher MD History of Present Illness I had the pleasure of seeing Chayito Reid today regarding abdominal pain. She has been seen by Gastroenterology on this admission with evaluation by Dr. Alves secondary to enlarged GB with cholelithiasis on CT imaging and elevated bilirubin, however, her MRCP was normal without evidence of biliary ductal dilation and her bilirubin normalized. She was seen by Dr. Boyer, who did not feel surgery was indicated. She has also been treated for a pyelonephritis during this hospitalization with IV abx. At the time that I saw the patient this AM, she was complaining of a headache. She also complained of some Left upper quadrant abdominal pain, which she described as a chronic, achy pain, 4/10 in intensity, without radiation. She denied any alleviating or exacerbating factors. A CT scan of the abd/pelvis yesterday showed diverticulosis, and a hiatal hernia, but no acute findings. She states that she has never undergone an EGD in the past, and states her last colonoscopy was approximately 10 years ago. She denies any further complaints. Allergies Allergy/AdvReac Type Severity Reaction Status Date / Time Penicillins Allergy Mild Hives Unverified 12/30/19 20:56 Tetracyclines Allergy Mild Hives Unverified 12/30/19 20:56 Home Medications Home Medications Medication Instructions Recorded Confirmed Type alirocumab [Praluent Pen] 0 mg SUBCUT UD 12/30/19 12/30/19 History aspirin [Aspirin Low Dose] 81 mg PO DAILY 12/30/19 12/30/19 History ciprofloxacin HCl 500 mg PO BID 12/30/19 12/30/19 History clonazepam 0.5 mg PO BID 12/30/19 12/30/19 History docusate sodium 100 mg PO DAILY 12/30/19 12/30/19 History ezetimibe 10 mg PO DAILY 12/30/19 12/30/19 History loratadine [Claritin] 10 mg PO DAILY 12/30/19 12/30/19 History metronidazole 500 mg PO TID 12/30/19 12/30/19 History nortriptyline 25 mg PO DAILY 12/30/19 12/30/19 History vortioxetine [Trintellix] 5 mg PO DAILY 12/30/19 12/30/19 History Patient History Medical History Cholelithiasis Diverticulitis Social History Communication Ability: Effective Beliefs That Will Affect Care: None Current Living Situation: Family Other Information That Helps Us Care for You: No Feels Safe at Home: Yes Safety Concerns: Feels Safe At This Time Smoking Status: Never smoker Hx Alcohol Use: Yes Hx Substance Use: No Review of Systems Review of Systems: All systems reviewed & are unremarkable except as noted in HPI & below Physical Exam Constitutional: WD/WN, vitals as above Eyes: PERRL, conjunctivae normal, anicteric sclerae ENMT: external ear and nose normal, oropharynx normal Neck: trachea midline, no thyromegaly Respiratory: normal respiratory effort, lungs clear to auscultation Cardiovascular: RRR, no murmur, no edema Gastrointestinal (Abdomen): Inspection/Auscultation: normal bowel sounds; abdomen not distended Percussion/Palpation: + abdomen tender (LUQ) and abdomen soft; no guarding and abdomen not rigid Skin: no rashes, warm and dry Psychiatric: Orientation: alert and oriented x 3 Affect: + flat affect Mood: + depressed mood Results & Data ([facility]) Vital Signs (Past 12 Hours) Vital Signs Temp Pulse Resp BP Pulse Ox 01/05/20 09:57 69 148/92 H 94 01/05/20 07:48 36.5 C 64 16 162/91 H 93 PG Care Time/CCT Total # of Minutes Spent Total Time Spent with Patient: Total time spent is greater than 50% in coordination of care (as documented) at patient's floor/unit and/or counseling patient: Coding Level of Care Code 99074 Initial Inpt Care Lvl 3 Diagnoses Abdominal pain R10.9 Abdominal location: unspecified location Cholelithiasis K80.20 (1) Abdominal pain Abdominal location: unspecified location Qualified Code(s): R10.9 - Unspecified abdominal pain
[2020-01-05] MEDS ORDERED: PANTOprazole 40 MG TAB PO SCH (12:45)
--- NOTE | 2020-01-09 14:10 | Discharge Summary ---
Date of Service January 09, 2020 Admission HPI Per Admitting Provider HISTORY OF PRESENT ILLNESS: This is a 69-year-old female with past medical history significant for hyperlipidemia, prediabetes, diaphragmatic hernia, diverticulosis of large intestine without hemorrhage, chronic kidney disease stage III, fibromyalgia, history of basal cell cancer, generalized anxiety disorder, major depression who lives at home with her son, presents with ongoing abdominal pain. She is having abdominal pain for last few days. Initially started in the left lower quadrant and groin region, now is mostly in the lower abdomen and also in the back. She had history of diverticulosis so she thought she is having diverticulitis and has tele medicine and was prescribed Cipro and Flagyl which she started taking since Tuesday, but today she could not take the pills because she had several episodes of nausea/ vomiting and she also has episodes of diarrhea, so she came to the ER. In the ER, CT scan was done which is showing bilateral perinephric stranding, but no diverticulitis on the preliminary report. Her white count was 13k. She is afebrile. Her blood pressure is somewhat on the lower side. Otherwise, hemodynamics are stable. Received Rocephin and fluids in the ER, still has some nausea. Denies any headache, no dizziness, no blurred vision, no earache, no runny nose, no sore throat, no cough, no dysphagia, no shortness of breath, no chest pain, no loss of sense of smell or taste. No blood in stools or black stools. Today she has some discomfort while micturating, but in the ER, she was not able to micturate so far. No rash. Admission Exam Per Admitting Provider PHYSICAL EXAMINATION: GENERAL: The patient is of moderate build, not in acute distress. VITAL SIGNS: Temperature 36.6, pulse 87, respiratory rate 20, blood pressure 93/71, oxygen 95% on room air. HEENT: No pallor, no icterus. NECK: No JVD, no neck masses, no carotid bruits. CARDIOVASCULAR: S1, S2 heard, regular rate and rhythm. No murmur, no gallop. RESPIRATORY SYSTEM: Normal AP diameter. No accessory muscle use. No wheezing, no crackles. ABDOMEN: Soft, bowel sounds present. Mild abdominal diffuse discomfort. No guarding, no rigidity. No distention. CENTRAL NERVOUS SYSTEM: Cranial nerves II-XII grossly intact. Nonfocal. EXTREMITIES: No edema, no erythema. Principal Diagnosis PYELONEPHRITIS, ACUTE KIDNEY INJURY Discharge Exam General- oriented x 3, not in distress, speaks in sentences with no effort or accessory muscle use Eyes- anicteric Neck- no JVD Lungs- clear breath sounds bilaterally Heart- normal rate, regular rhythm; no murmurs Abdomen- normal bowel sounds, nondistended, soft, nontender no cva tenderness Extremities- trace pretibial edema, no calf tenderness Neuro- alert, oriented x 3; no gross focal neurologic deficits Skin- warm & dry Discharge Data Allergies Allergy/AdvReac Type Severity Reaction Status Date / Time Penicillins Allergy Mild Hives Unverified 12/30/19 20:56 Tetracyclines Allergy Mild Hives Unverified 12/30/19 20:56 Consultations 12/30/19 22:29 ED Decision to Admit Stat 12/31/19 00:51 Consult Case Management - Discharge Planning Routine 12/31/19 06:57 Consult Gastroenterology Routine 12/31/19 09:58 Consult General Surgery Routine 01/01/20 08:46 Consult Nephrology Routine 01/04/20 14:58 Consult Gastroenterology Routine Ordered Studies 12/30/19 21:14 CT abd pelvis wo con Urgent FINDINGS: No pneumatosis, free air or portal venous gas is present. There is moderate bilateral perinephric infiltration. There is no hydronephrosis. No renal, ureteral or bladder calculi are present. A 2.6 cm low-attenuation right adrenal nodule favors an adenoma. Unenhanced images of the liver, left adrenal gland, spleen and pancreas are unremarkable. Is no biliary or pancreatic ductal dilatation. Gallbladder is mildly distended. There is no adjacent infiltration. There is colonic diverticulosis without evidence for acute diverticulitis. There is no evidence for a bowel obstruction. No suspicious osseous lesions are present. IMPRESSION: 1. Mild gallbladder distention. A right upper quadrant ultrasound is recommended for further evaluation. 2. Moderate nonspecific bilateral perinephric infiltration. No urinary calculi or hydronephrosis. 3. 2.6 cm right adrenal nodule suggestive of an adenoma. 4. Colonic diverticulosis without evidence for acute diverticulitis. 12/31/19 08:00 US gallbladder Urgent FINDINGS: Pancreas: The pancreas demonstrates a normal echotexture. Liver: Unremarkable. Gallbladder: Multiple small gallstones. No gallbladder wall thickening. The gallbladder is mildly distended. The technologist reported a positive sonographic Forrester sign. CBD: Upper limits of normal measuring 6 mm. Right kidney: No hydronephrosis. Hypoechoic right adrenal gland lesion measuring 2.7 cm. IMPRESSION: 1. Cholelithiasis. No gallbladder wall thickening. However, the gallbladder is distended and the technologist reported a positive sonographic Forrester's sign. Therefore, this is concerning for a developing acute cholecystitis. Clinical correlation and/or HIDA scan recommended for further evaluation. 2. The common bile duct measures 6 mm. 3. A 2.7 cm right adrenal gland lesion. This is better appreciated on yesterday's abdomen and pelvis CT. 12/31/19 10:08 MR MRCP Routine FINDINGS: The gallbladder is mildly distended and there are large intraluminal gallstones. There is no gallbladder wall thickening or surrounding inflammation. Trace nonspecific pericholecystic and perihepatic fluid is noted. There is no intra or extrahepatic biliary duct dilatation. The common bile duct measures up to 7 mm. No intraluminal filling defects are identified to suggest choledocholithiasis. The pancreatic duct is normal in caliber. The liver is enlarged, and hepatic steatosis was shown by both CT and ultrasound. The spleen is normal in size. A 10 mm T2 hyperintense lesion in the inferior spleen is statistically of doubtful significance. A 2.7 cm right adre nal nodule was shown to represent a fat-containing adenoma by CT. There is nonspecific bilateral perinephric infiltration, as well as fluid within the paracolic gutters bilaterally, left greater than right. The abdominal aorta is normal in caliber. The pancreatic parenchyma is normal as imaged. There is no bowel obstruction. Diverticulosis is noted in the imaged colon. No upper abdominal lymphadenopathy is identified. There is a large hiatal hernia. Trace pleural effusions are noted. No destructive bony lesion is suggested. IMPRESSION: 1. Cholelithiasis within a mildly distended gallbladder. There is no clear MRI evidence of acute cholecystitis. If there is clinical concern for acute cholecystitis a nuclear hepatobiliary scan should be considered. 2. There is no intra or extrahepatic biliary ductal dilatation. No choledocholithiasis is seen. 3. There is nonspecific perinephric infiltration and fluid within the paracolic gutters, left greater than right. Correlate clinically and urinalysis for evidence of ascending urinary tract infection/pyelonephritis. 4. The liver is enlarged and steatotic. 5. Large hiatal hernia. 6. Trace pleural effusions and upper abdominal ascites. HIDA SCAN FINDINGS: The hepatobiliary scan shows prompt and homogeneous hepatic uptake. There is visualized activity within the intra and extrahepatic biliary tree at 10 minutes, and within the gallbladder at 40 minutes. There is normal biliary to bowel transit, with small bowel visualized by 15 minutes. IMPRESSION: Normal nuclear hepatobiliary scan. There is no scintigraphic evidence of cholecystitis. 01/04/20 12:44 CT abd pelvis wo con Routine FINDINGS: A moderate sized hiatal hernia is noted. Small bilateral pleural effusions are noted. No pneumatosis, free air or portal venous gas is present. A 2.6 cm hypodense right adrenal lesion favors an adenoma. Unenhanced images of the spleen, left adrenal gland, kidneys and pancreas are unremarkable. There is no hydronephrosis. The gallbladder is no longer distended. There is a small amount of pericholecystic infiltration and fluid. Colonic diverticulosis is noted without evidence for acute diverticulitis. The appendix is unremarkable. There is no ascites. No suspicious osseous lesions are noted. There is no lymphadenopathy. IMPRESSION: 1. Interval resolution of gallbladder distention. Mild pericholecystic infiltration and fluid however hepatobiliary scan of January 01, 2020 demonstrated no evidence for acute cholecystitis. 2. No bowel obstruction. 3. Colonic diverticulosis without evidence for acute diverticulitis. 4. Moderate-sized hiatal hernia. 5. Small bilateral pleural effusions. Hospital Course (1) Abdominal pain: 69-year-old female with history of prediabetes, dyslipidemia, diaphragmatic hernia, diverticulosis, CKD stage III Fibromyalgia And others problems noted below presenting with abdominal pain. Abdominal pain Possible pyelonephritis per admitting service notes: - as per admission H and P "This is a 69-year-old female with past medical history significant for hyperlipidemia, prediabetes, diaphragmatic hernia, diverticulosis of large intestine without hemorrhage, chronic kidney disease stage III, fibromyalgia, history of basal cell cancer, generalized anxiety disorder, major depression who lives at home with her son, presents with ongoing abdominal pain. She is having abdominal pain for last few days. Initially started in the left lower quadrant and groin region, now is mostly in the lower abdomen and also in the back. She had history of diverticulosis so she thought she is having diverticulitis and has tele medicine and was prescribed Cipro and Flagyl which she started taking since Tuesday, but today she could not take the pills because she had several episodes of nausea/ vomiting and she also has episodes of diarrhea, so she came to theEr. In the ER, CT scan was done which is showing bilateral perinephric stranding, but no diverticulitis on the preliminary report. Her white count was 13k. She is afebrile." Urinalysis unremarkable However patient already received 3 days of ciprofloxacin plus metronidazole prior to admission, question partially treated UTI given ceftriaxone 2 g IV daily for presumed pyelonephritis symptoms gradually improved, afebrile changed to course of Cefdinir PO on discharge ff up with PCP in week patient's nausea and L sided abdominal pain persisted during admission, but e ventually resolved repeat CT abd/pelvis: no acute process requested GI Dr. Jorgensen to re-evaluate the patient--> "Recommend trial of Pantoprazole 40 mg by mouth each morning 1/2 hour prior to breakfast. Followup with [facility] on discharge for Colonoscopy due to pain and the fact that she is past due for screening Recommend Low fat and Low fiber diet at present Cholelithiasis Acute cholecystitis ruled out - ultrasound shows "Cholelithiasis. No gallbladder wall thickening. However, the gallbladder is distended and the technologist reported a positive sonographic Forrester's sign. Therefore, this is concerning for a developing acute cholecystitis." - MRCP on 12/31/2019 1. Cholelithiasis within a mildly distended gallbladder. There is no clear MRI evidence of acute cholecystitis. If there is clinical concern for acute cholecystitis a nuclear hepatobiliary scan should be considered. 2. There is no intra or extrahepatic biliary ductal dilatation. No choledocholithiasis is seen. 3. There is nonspecific perinephric infiltration and fluid within the paracolic gutters, left greater than right. Correlate clinically and urinalysis for evidence of ascending urinary tract infection/pyelonephritis. 4. The liver is enlarged and steatotic. 5. Large hiatal hernia. 6. Trace pleural effusions and upper abdominal ascites. - HIDA: There is no scintigraphic evidence of cholecystitis. - GI and General Surgery consulted cholecystectomy not recommended during admission Ff up with Dr. Boyer for Cholelithiasis (2) Lesion of adrenal gland: A 2.7 cm right adrenal gland lesion on ultrasound which may be incidental finding further work up and follow up as outpatient (3) Acute kidney failure: Acute kidney injury on chronic kidney disease stage III - likely ATN from volume depletion -Baseline creatinine around 1.1, admission creatinine 2.09 and peaked as 2.9 -nephrology consulted - after IV fluids, Creatinine improved to baseline 1.1 Abnormal MRCP Findings (+) hepatomegaly, hepatic steatosis (+) large hiatal hernia -- further work up and follow up as outpatient Prediabetes by history -HbA1c levels is 5.3 Dyslipidemia -On Praluent subcutaneous q. 14 days. Generalized anxiety disorder and depression -On nortriptyline, Klonopin, and on Trintellix Disposition d/c home ff up with PCP in 1 week ff up with Gen Surg for discussion re: elective Cholecystectomy Total Time Total Time Spent Total Time Spent (In Minutes): > 30 minutes Discharge Plan Discharge Items Patient Disposition: Home - Self-Care Reason For Visit: abdominal pain Discharge Diagnosis: Possible pyelonephritis Cholelithiasis Acute kidney injury on chronic kidney disease stage III vs acute renal failure Activity: Resume your previous activity Activity Comment: Resume activity gradually as tolerated Driving/Machine Use: No driving until re-evaluated and allowed by Primary Care Physician Non-emergency contact: Primary Care Provider Call non-emergency contact if: you have any medication questions, your symptoms worsen, your pain is not controlled, your pain is worsening, your pain is unusual for you, your pain is concerning for you and you have a fever Follow-up/Referrals: Qasim Alves [Physician] - Kole Fulton MD [Primary Care Provider] - 01/10/20 12:00 pm (01/10/2020 12:00 PM Provider Kole Fulton MD Department [facility] ) Diet: Heart Healthy, Low Fiber and Low Fat Addtl Attending Provider Instructions: PLEASE REVIEW YOUR NEW MEDICATION LIST AND FOLLOW INSTRUCTIONS CAREFULLY. YOUR NEW MEDICATIONS INCLUDE: CEFDINIR- antibiotic for kidney infection PROTONIX- to lower acidity in your stomach FOLLOW LOW FAT, LOW FIBER FOR NOW UNTIL YOUR ABDOMINAL DISCOMFORT RESOLVES. CALL YOUR PRIMARY CARE PHYSICIAN OR RETURN TO THE ER IMMEDIATELY IF WITH RECURRENCE OR WORSENING OF YOUR SYMPTOMS, ABDOMINAL PAIN ,NAUSEA/VOMITING, FEVER/CHILLS, WEAKNESS. FOLLOW UP WITH PRIMARY CARE PHYSICIAN IN 1 WEEK. THE CLINIC WILL BE CALLING YOU ON TUESDAY FOR THE APPOINTMENT SCHEDULE. FOLLOW UP WITH [facility] DR. ALVES IN 2 WEEKS. PLEASE CALL HIS OFFICE FOR AN APPOINTMENT. CONTACT INFORMATION OUTLINED ABOVE. Pending Studies at Discharge: Yes Studies:: COLONOSCOPY C/O [facility] IN 2-3 WEEKS Stand-Alone Forms: My [facility], Smoking Cessation Medications and DC Order Prescriptions: New pantoprazole 40 mg Tablet,Delayed Release (Dr/Ec) 40 mg PO QAM Qty: 14 RF: 1 cefdinir 300 mg capsule 300 mg PO Q12H Qty: 16 RF: 0 Continued clonazepam 0.5 mg tablet 0.5 mg PO BID RF: 0 docusate sodium 100 mg Tablet 100 mg PO DAILY RF: 0 loratadine [Claritin] 10 mg Tablet 10 mg PO DAILY RF: 0 ezetimibe 10 mg tablet 10 mg PO DAILY RF: 0 Praluent Pen 75 mg/mL pen injector 0 mg SUBCUT UD RF: 0 aspirin [Aspirin Low Dose] 81 mg Tablet,Delayed Release (Dr/Ec) 81 mg PO DAILY RF: 0 nortriptyline 25 mg capsule 25 mg PO DAILY RF: 0 Trintellix 5 mg Tablet 5 mg PO DAILY RF: 0 Discontinued metronidazole 500 mg tablet 500 mg PO TID RF: 0 ciprofloxacin HCl 500 mg tablet 500 mg PO BID RF: 0 Discharge Orders: Discharge Order (Routine); Ordered 01/05/20 Ordered By: Jeremias Fisher Admission Data Admit Date/Time: 12/30/19 23:43 Attending Provider: Jeremias Fisher Admit Provider: Iván Landeros Primary Care Provider: Kole Fulton Other Providers: Iván Landeros ; Liudmila Higgins ; Faith Bird ; Annette Allen ; Halie Landin ; Darron Terry ; Phoebe Yuen ; Aure Zamora ; Rekha Hernandez ; Florin Jose ; Qasim Alves ; Zenaida Hill ; Ysabel Webb ; Allison Simons ; Dalia Valerio ; Magy Johnson ; Alber Boyer ; Lorraine Lugo ; Sergio Hicks ; Julian Jorgensen. Other Interventions: Discharge Summary Assessment (RN) Last Done: 01/05/20 15:59 DC Date/Time DO NOT enter until pt leaves facility: 01/05/20 16:33
== END 2020-01-05 16:33 | disposition home or self-care (01) | DRG 690 ==
LOC: ED 20:33 → SUATTDRO 23:43 → 3W 23:43